=== PATIENT | female | born 1950 | race Caucasian/White ===

== ENCOUNTER 2016-07-21 11:06 | Emergency (ER) | payer MEDICARE, BC ==
[2016-07-21] MEDS ORDERED: HYDROCODONE/APAP 5/325MG TABLET PO ONE (11:57)
--- NOTE | 2016-07-21 12:23 | Emergency Department Record ---
History of Present Illness - General Chief Complaint: Fall Injury Stated Complaint: FALL Time Seen by Provider: 07/21/16 11:39 Source: Patient Mode of Arrival: Wheelchair Limitations: No limitations - History of Present Illness Initial Comments: pt was sitting in a chair in her drs office and when she stood up the chair fell forward with her and she landed on her knees which now hurt. pt denies hitting head or injuring neck. Complaint: Fall Onset/Timin -: Hour(s) Fall From: Chair When Fall Occurred: 1 hour [place] Fall Witnessed: Yes, by bystander Place Fall Occurred: Other Loss of Consciousness: None Prolonged Down Time?: No Symptoms Prior to Fall: None Location - Extremities: Left: Knee, Right: Knee Severity: Moderate Severity scale (1-10): 8 Quality: Other Context: Other Associated Symptoms: Headache - [place] Coma Scale Eye Response: (4) Open spontaneously Motor Response: (6) Obeys commands Verbal Response: (5) Oriented Faina Total: 15 - Related Data Home Medications Medication Instructions Recorded Confirmed Last Taken Alprazolam 0.25 mg PO BID 12/09/13 07/21/16 07/20/16 Omeprazole 40 mg PO DAILY 12/09/13 07/21/16 07/20/16 Venlafaxine HCl [Venlafaxine HCl 150 mg PO BID 12/09/13 07/21/16 07/20/16 ER] Zolpidem Tartrate [Zolpidem 10 mg PO DAILY PRN 12/09/13 07/21/16 07/20/16 Tartrate] Amitriptyline HCl 75 mg PO DAILY 09/08/14 07/21/16 07/20/16 Gabapentin 1,600 mg PO TID tab 12/26/15 07/21/16 07/20/16 Warfarin Sodium 5 mg PO QD #30 tab 06/29/16 07/21/16 07/20/16 Previous Rx's Medication Instructions Recorded Hydrocodone/Acetaminophen [[place] 1 tab PO Q6H PRN #30 tab 11/16/14 5mg/325mg] Hydrocodone/Acetaminophen [[place] 1 tab PO Q6H PRN #7 tab 07/21/16 7.5mg/325mg] Allergies Allergy/AdvReac Type Severity Reaction Status Date / Time Sulfa (Sulfonamide Allergy Severe ANAPHYLAXIS Verified 07/21/16 11:26 Antibiotics) rivaroxaban [From Xarelto] Allergy CHEST PAIN Verified 07/21/16 11:26 codeine AdvReac Intermediate NAUSEA AND Verified 07/21/16 11:26 VOMITING pregabalin [From Lyrica] AdvReac Intermediate BLURRED Verified 07/21/16 11:26 VISION Travel Screening - Travel/Exposure Within Last 30 Days Have you traveled within the last 30 days?: No - Travel/Exposure Within Last Year Have you traveled outside the [place] in the last year?: No - Additonal Travel Details Have you been exposed to anyone with a communicable illness?: No - Travel Symptoms Symptom Screening: None Review of Systems Reviewed: No additional complaints except as noted below Constitutional: Reports: As per HPI. Denies: Chills, Fever, Malaise, Night sweats, Weakness, Weight change Eyes: Reports: As per HPI. Denies: Eye discharge, Eye pain, Photophobia, Vision change ENT: Reports: As per HPI. Denies: Congestion, Dental pain, Ear pain, Epistaxis , Hearing loss, Throat pain Respiratory: Reports: As per HPI. Denies: Cough, Dyspnea, Hemoptysis, Stridor, Wheezes Cardiovascular: Reports: As per HPI. Denies: Arrhythmia, Chest pain, Dyspnea on exertion, Edema, Murmurs, Orthopnea, Palpitations, Paroxysmal nocturnal dyspnea, Rheumatic Fever, Syncope Endocrine: Reports: As per HPI. Denies: Fatigue, Heat or cold intolerance, Polydipsia, Polyuria Gastrointestinal: Reports: As per HPI. Denies: Abdominal pain, Constipation, Diarrhea, Hematemesis, Hematochezia, Melena, Nausea, Vomiting Genitourinary: Reports: As per HPI. Denies: Abnormal menses, Discharge, Dyspareunia, Dysuria, Frequency, Hematuria, Incontinence, Retention, Urgency Musculoskeletal: Reports: As per HPI. Denies: Arthralgia, Back pain, Gout, Joint swelling, Myalgia, Neck pain Skin: Reports: As per HPI. Denies: Bruising, Change in color, Change in hair/ nails, Lesions, Pruritus, Rash Neurological: Reports: As per HPI. Denies: Abnormal gait, Confusion, Headache, Numbness, Paresthesias, Seizure, Tingling, Tremors, Vertigo, Weakness Psychiatric: Reports: As per HPI. Denies: Anxiety, Auditory hallucinations, Depression, Homicidal thoughts, Suicidal thoughts, Visual hallucinations Hematological/Lymphatic: Reports: As per HPI. Denies: Anemia, Blood Clots, Easy bleeding, Easy bruising, Swollen glands Past Medical History - SOCIAL HISTORY Smoking Status: Never smoker Alcohol Use: None Drug Use: None - RESPIRATORY Hx Respiratory Disorders: Yes Hx Bronchitis: Yes - CARDIOVASCULAR Hx Cardio Disorders: No - NEURO Hx Neuro Disorders: Yes Hx TIA: Yes Comment:: Apr 2012 - GI Hx GI Disorders: No - Hx Genitourinary Disorders: No - ENDOCRINE Hx Endocrine Disorders: Yes Hx Thyroid Disease: Yes - MUSCULOSKELETAL Hx Musculoskeletal Disorders: Yes Hx Fibromyalgia: Yes Hx Osteoporosis: Yes - PSYCH Hx Psych Problems: Yes Hx Anxiety: Yes Hx Depression: Yes - HEMATOLOGY/ONCOLOGY Hx Hematology/Oncology Disorders: Yes Hx Anemia: Yes Hx Blood Transfusions: Yes Hx Blood Transfusion Reaction: No Comment:: blood tranfusions last week, FE infusion this week Family Medical History Any Significant Family History?: Yes Hx Alcohol Use: Father, Brother/Sister Hx Anxiety: Mother Hx Cancer: Grandparents Hx Dementia: Mother Hx Depression: Mother Hx Diabetes: Mother Hx Heart Disease: Father Hx HTN: Father Hx Resp Disorders: Mother Hx Stroke: Mother Physical Exam - General General Appearance: Alert, Oriented x3, Cooperative, Mild distress - Head Head exam: Normal inspection - Eye Eye exam: Normal appearance, PERRL, EOMI Pupils: Normal accommodation - ENT ENT exam: Normal exam, Mucous membranes moist, Normal external ear exam, Normal orophraynx Ear exam: Normal external inspection. negative: External canal tenderness Nasal Exam: Normal inspection. negative: Discharge, Sinus tenderness Mouth exam: Normal external inspection, Tongue normal Teeth exam: Normal inspection. negative: Dental caries Throat exam: Normal inspection. negative: Tonsillar erythema, Tonsillar exudate - Neck Neck exam: Normal inspection, Full ROM. negative: Tenderness - Respiratory Respiratory exam: Normal lung sounds bilaterally. negative: Respiratory distress - Cardiovascular Cardiovascular Exam: Regular rate, Normal rhythm, Normal heart sounds - GI/Abdominal GI/Abdominal exam: Soft, Normal bowel sounds. negative: Tenderness - Rectal Rectal exam: Deferred - exam: Deferred - Extremities Extremities exam: Full ROM, Normal capillary refill, Tenderness, Other ( ecchymosis on bilateral knees.) - Back Back exam: Reports: Normal inspection, Full ROM. Denies: Muscle spasm, Rash noted, Tenderness - Neurological Neurological exam: Alert, CN II-XII intact, Normal gait, Oriented X3 - Psychiatric Psychiatric exam: Normal affect, Normal mood - Skin Skin exam: Dry, Intact, Normal color, Warm Course Vital Signs 07/21/16 11:34 Temperature 98.5 F Pulse Rate 79 Respiratory 20 Rate Blood Pressure 126/78 Pulse Ox 94 L Disposition Disposition: Discharge Clinical Impression: Multiple contusions Closed fracture of patella with nonunion Qualifiers: Encounter type: subsequent encounter Fracture morphology: unspecified fracture morphology Fracture alignment: nondisplaced Laterality: left Qualified Code(s): S82.002K - Unspecified fracture of left patella, subsequent encounter for closed fracture with nonunion Disposition: Home, Self-Care Condition: (1) Good Instructions: Fall Prevention for Older Adults (ED), Contusion in Adults, Manager Balance (GEN) Additional Instructions: follow up with family doctor. return sooner if worse. ice and elevate Prescriptions: Hydrocodone/Acetaminophen [[place] 7.5mg/325mg] 1 tab PO Q6H PRN #7 tab PRN Reason: Pain - General Forms: Patient Portal Access
--- NOTE | 2016-07-24 08:34 | RADIOLOGY REPORT ---
EXAM: LEFT KNEE HISTORY: PAIN. TECHNIQUE: Four views of the left knee were performed. FINDINGS: There is severe osteopenia. There is a fracture deformity of the patella. No joint fusion. There is prepatellar soft tissue swelling. There are vascular calcifications. IMPRESSION: 1. SEVERE OSTEOPENIA. 2. FRACTURE DEFORMITY OF THE PATELLA. PREPATELLAR SOFT TISSUE SWELLING. 3. PERIPHERAL VASCULAR DISEASE. JOB NUMBER: [id number] [facility]
--- NOTE | 2016-07-24 08:43 | RADIOLOGY REPORT ---
EXAM: RIGHT KNEE HISTORY: PAIN. TECHNIQUE: Four views of the right knee were performed. FINDINGS: There is osteopenia. There is chondrocalcinosis. There is peripheral vascular disease. No joint effusion. IMPRESSION: 1. OSTEOPENIA. 2. CHONDROCALCINOSIS. 3. PERIPHERAL VASCULAR DISEASE. JOB NUMBER: [id number] [facility]
== END 2016-07-21 13:44 | disposition home or self-care (01) ==
LOC: ER 11:06
DX: S82.002A Unspecified fracture of left patella, initial encounter for closed fracture (principal); S80.01XA Contusion of right knee, initial encounter; R51 Headache; W07.XXXA Fall from chair, initial encounter; Y92.531 Health care provider office as the place of occurrence of the external cause
CPT/HCPCS: 99283

== ENCOUNTER 2017-01-12 06:21 | Day surgery (SDC) | payer MEDICARE, BC ==
[~2017-01-12 06:21] MED LIST: ACETAMINOPHEN 1,000 MG/100 ML BTL IV ONE; CEFAZOLIN 2 Gram 2 GM/50 ML BAG IVPB ONE; FAMOTIDINE 20MG TABLET PO ONE; MECLIZINE 25 MG TABLET PO ONE; METOCLOPRAMIDE 10 MG TABLET PO ONE
[2017-01-12 06:47] LABS: HEMATOCRIT 38.8 % (35.0-47.0)
[2017-01-12 06:57] LABS: INR 2.46; PROTHROMBIN TIME (PATIENT) 26.8 SECONDS (9.5-12.1)
[2017-01-12 07:01] LABS: ANION GAP 10.9 (7-16); BLOOD UREA NITROGEN 20 mg/dL (7-17); CARBON DIOXIDE 19.1 mmol/L (22-30); CREATININE 0.9 mg/dL (0.52-1.04); EST GLOMERULAR FILTRATION RATE > 60 ml/min; GLUCOSE,RANDOM 73 mg/dL (70-110)
[2017-01-12] MEDS ORDERED: TRAMADOL HCL 50 MG TABLET PO PRN (10:47)
[2017-01-12] MEDS ORDERED: ONDANSETRON HCL IV 4 MG/2 ML VIAL IVP PRN (10:47)
[2017-01-12] MEDS ORDERED: ALPRAZOLAM 0.25 MG PO PRN (10:49)
[2017-01-12] MEDS ORDERED: ZOLPIDEM 10 MG PO PRN (10:51)
[2017-01-12] MEDS ORDERED: HYDROCODONE/APAP 5/325MG TABLET PO PRN (10:58)
[2017-01-12] MEDS: RINGERS SOLUTION,LACTATED 1,000 ML IV SCH ×2 (12:09→19:35)
[2017-01-12] MEDS: CEFAZOLIN 1 Gram 1 GM/50 ML BAG IVPB SCH (15:28)
[2017-01-12] MEDS: PATIENT OWN MED: GABAPENTIN 600 MG PO SCH ×2 (15:28→21:47)
[2017-01-12] MEDS ORDERED: ROCURONIUM BROMIDE 50MG/5ML VIAL IV ONE (15:39)
[2017-01-12] MEDS ORDERED: FENTANYL PF 0.25MG/5ML AMPUL IV ONE (15:39)
[2017-01-12] MEDS ORDERED: SEVOFLURANE 250 ML INH ONE (15:39)
[2017-01-12] MEDS ORDERED: LIDOCAINE 2% MDV (20MG/ML) 20ML VIAL IV ONE (15:39)
[2017-01-12] MEDS ORDERED: MIDAZOLAM HCL 2MG/2ML VIAL IV ONE (15:39)
[2017-01-12] MEDS ORDERED: ONDANSETRON HCL IV 4 MG/2 ML VIAL IVP ONE (15:39)
[2017-01-12] MEDS ORDERED: HYDROMORPHONE HCL 2 MG/ML VIAL IV ONE (15:39)
[2017-01-12] MEDS ORDERED: DEXAMETHASONE 4 MG/ML 1ML VIAL IVP ONE (15:39)
[2017-01-12] MEDS ORDERED: PROPOFOL 10 MG/ML VIAL IV ONE (15:39)
[2017-01-12] MEDS ORDERED: KETOROLAC 30 MG/ML VIAL IVP ONE (15:39)
[2017-01-12] MEDS: HYDROCODONE/APAP 5/325MG TABLET PO PRN (19:58)
[2017-01-12] MEDS ORDERED: VENLAFAXINE 150 MG PO SCH (22:00)
[2017-01-12] MEDS ORDERED: AMITRIPTYLINE 75 MG PO SCH (22:00)
[2017-01-13] MEDS: CEFAZOLIN 1 Gram 1 GM/50 ML BAG IVPB SCH ×2 (01:38→07:52)
[2017-01-13] MEDS: RINGERS SOLUTION,LACTATED 1,000 ML IV SCH (02:50)
[2017-01-13] MEDS: HYDROCODONE/APAP 5/325MG TABLET PO PRN (05:26)
[2017-01-13] MEDS ORDERED: PATIENT OWN MED: OMEPRAZOLE 40 MG PO SCH (07:00)
[2017-01-13] MEDS ORDERED: PATIENT OWN MED: LEVOTHYROXINE 75 MCG PO SCH (07:00)
[2017-01-13] MEDS ORDERED: PATIENT OWN MED: LORATADINE 10 MG PO SCH (10:00)
[2017-01-13] MEDS ORDERED: VITAMIN D 50000 UNIT PO SCH (10:00)
[2017-01-13] MEDS ORDERED: WARFARIN 5 MG PO SCH (10:00)
--- NOTE | 2017-01-13 13:10 | Operative Note ---
DATE OF SURGERY: 01/12/2017 PREOPERATIVE DIAGNOSES: 1. Bilateral symptomatic macromastia. 2. Bilateral inframammary intertrigo. 3. Bilateral breast asymmetry. POSTOPERATIVE DIAGNOSES: 1. Bilateral symptomatic macromastia. 2. Bilateral inframammary intertrigo. 3. Bilateral breast asymmetry. OPERATION: Bilateral inferior pedicle breast reduction. Surgeon: Stephon Cool MD Anesthesia: General. Drains: None. Specimens: 2000 total grams of tissue. PROCEDURE: The patient was interviewed preoperatively. The operative plan was reviewed. She was marked appropriately for almaguer pattern inferior pedicle breast reduction. She requested to be as small as possible. She was then taken to the operating room with PAS stockings after induction of uncomplicated general anesthesia. All pressure points well padded and protected, we prepped and draped in the usual sterile manner. We circumscribed her nipple areolar complex 4.5 cm and de-epithelialized 8 cm base pedicles with cautery for hemostasis because she was on Coumadin. We then went to medial resection, we went perpendicular to the pedicle tube, but not through pec fascia and laterally well into the axilla, leaving a layer of subcutaneous to avoid permanent neurosensory changes. We then raised skin flaps with a uniform thickness. We then took the remaining bulk off the pedicles. It should be noted this was all done with cautery, paying particular attention to hemostasis because of her anticoagulation. We then checked the flaps and pedicles for symmetry, hemostasis, and the nipples for vascularity. Once this was satisfactory, we closed by advancing lateral to medial and then sewn up, checking for shape and contour and symmetry. Once this was satisfactory, we placed her supine and closed in horizontal vertical using interrupted and subcuticular 2-0 Monocryl. We then marked new nipple areolar complex positions, measured them from the sternal notch nipple from midline to nipple and inframammary crease to nipple. Once these three numbers were the same, we excised the defects again with cautery. The nipples as expected were directly beneath. We then secured them meticulously using interrupted and subcuticular 4-0 Monocryl. At no time did either vascular pedicle show any vascular compromise prior to dressing change. We had meticulous hemostasis. She tolerated the procedure well without complication. MD NERI Fournier
[2017-01-14] MEDS ORDERED: WARFARIN 4 MG PO SCH (10:00)
== END 2017-01-13 10:50 | disposition home or self-care (01) ==
LOC: SUR 06:21 → MEDSURG 11:04 → SUR 01-13 10:50
PROVIDERS: ATTEND Plastic Surgery
DX: N62 Hypertrophy of breast (principal); L30.4 Erythema intertrigo; M54.89 Other dorsalgia; E03.9 Hypothyroidism, unspecified; M79.7 Fibromyalgia; Z86.73 Personal history of transient ischemic attack (TIA), and cerebral infarction without residual deficits; M54.2 Cervicalgia; N64.81 Ptosis of breast
CPT/HCPCS: 85018; 85014; 85610; 80048; 19318; 00402; J1885; J2405; J0690 ×3; J1170

== ENCOUNTER 2017-03-11 10:37 | Inpatient (IN) | payer MEDICARE, BC ==
[2017-03-11] MEDS ORDERED: MORPHINE SULFATE 5 MG/ML PFS IVP ONE ×2 (10:42→13:22)
--- NOTE | 2017-03-11 10:47 | Emergency Department Record ---
History of Present Illness - General Chief Complaint: Fall Injury Stated Complaint: FALL Time Seen by Provider: 03/11/17 10:39 Source: Patient, Family Mode of Arrival: Ambulatory Limitations: No limitations - History of Present Illness Initial Comments: 66 yo female presents after a fall at the [facility]. She was walking in to the store and tripped over the ledge as she approached. She landed on her right shoulder. She is unsure if she hit her head. She has no pain or visible injury. She is on coumadin. She denies neck pain. She has right knee pain. N weakness or numbness. PCP is the [facility]. Complaint: Fall -: Minutes(s) Fall From: Standing When Fall Occurred: Just prior to arrival Fall Witnessed: Yes, by family Place Fall Occurred: Other (store) Loss of Consciousness: None Prolonged Down Time?: No Symptoms Prior to Fall: None Location: Other (right shoulder) Location - Extremities: Right: Shoulder, Elbow, Knee Severity: Severe Quality: Aching Associated Symptoms: Denies - [place] Coma Scale Eye Response: (4) Open spontaneously Motor Response: (6) Obeys commands Verbal Response: (5) Oriented Faina Total: 15 - Related Data Home Medications Medication Instructions Recorded Confirmed Last Taken Calcium Carbonate [Calcium] 600 mg PO BID 03/11/17 03/11/17 Unknown Docusate Sodium [Stool Softener] 100 mg PO ASDIR 03/11/17 03/11/17 Unknown Ergocalciferol (Vitamin D2) 50,000 unit PO WEEKLY 03/11/17 03/11/17 Unknown [Vitamin D2] Gabapentin [Neurontin] 600 mg PO TID 03/11/17 03/11/17 Unknown Levocetirizine Dihydrochloride 5 mg PO DAILY 03/11/17 03/11/17 Unknown [Xyzal] Previous Rx's Medication Instructions Recorded Hydrocodone/Acetaminophen [[place] 1 tab PO Q6H PRN #7 tab 07/21/16 7.5mg/325mg] Allergies Allergy/AdvReac Type Severity Reaction Status Date / Time Sulfa (Sulfonamide Allergy Severe ANAPHYLAXIS Verified 03/11/17 11:43 Antibiotics) rivaroxaban [From Xarelto] Allergy Intermediate RASH Verified 03/11/17 11:43 codeine AdvReac Intermediate NAUSEA AND Verified 03/11/17 11:43 VOMITING pregabalin [From Lyrica] AdvReac Intermediate BLURRED Verified 03/11/17 11:43 VISION Review of Systems Constitutional: Denies: Chills, Fever, Malaise, Weakness Eyes: Denies: Eye discharge ENT: Denies: Congestion, Throat pain Respiratory: Denies: Cough, Dyspnea, Hemoptysis, Stridor, Wheezes Cardiovascular: Denies: Chest pain, Palpitations, Syncope Endocrine: Denies: Fatigue Gastrointestinal: Denies: Abdominal pain, Diarrhea, Nausea, Vomiting Genitourinary: Denies: Dysuria, Urgency Musculoskeletal: Reports: As per HPI, Arthralgia Skin: Denies: Bruising, Change in color, Rash Neurological: Denies: Confusion, Headache, Numbness, Tingling, Weakness Psychiatric: Denies: Anxiety Hematological/Lymphatic: Denies: Blood Clots, Easy bleeding, Easy bruising, Swollen glands Past Medical History - SOCIAL HISTORY Smoking Status: Never smoker - RESPIRATORY Hx Respiratory Disorders: Yes Hx Bronchitis: Yes (none recently) Hx Pneumonia: Yes (6 yrs ago) - CARDIOVASCULAR Hx Cardio Disorders: Yes Hx Deep Vein Thrombosis: Yes (right leg 2002) Hx Irregular Heartbeat: Yes (A-fib) Hx Vascular Disease: Yes (peripheral vascular disease) - NEURO Hx Neuro Disorders: Yes Hx Headaches: Yes Hx of Migraines: Yes Hx TIA: Yes (2010) - GI Hx GI Disorders: Yes Hx Reflux: Yes (on omeprazole) Hx Irritable Bowel: Yes Hx Wt Loss/Wt Gain: (.) - Hx Genitourinary Disorders: No Comment:: hyst - ENDOCRINE Hx Endocrine Disorders: Yes Hx Thyroid Disease: Yes (hypo active) - MUSCULOSKELETAL Hx Musculoskeletal Disorders: Yes Hx Arthritis: Yes (all over) Hx Fibromyalgia: Yes Hx Osteoporosis: Yes - PSYCH Hx Psych Problems: Yes Hx Anxiety: Yes Hx Depression: Yes - HEMATOLOGY/ONCOLOGY Hx Hematology/Oncology Disorders: Yes Hx Anemia: Yes Hx Bruising: Yes (on warfarin) Hx Blood Transfusions: Yes Hx Blood Transfusion Reaction: No Comment:: has yearly iron infusions-done August 2016 Family Medical History Hx Alcohol Use: Father, Brother/Sister Hx Anxiety: Mother Hx Cancer: Grandparents Hx Dementia: Mother Hx Depression: Mother Hx Diabetes: Mother Hx Heart Disease: Father Hx HTN: Father Hx Resp Disorders: Mother Hx Stroke: Mother Physical Exam - General General Appearance: Alert, Oriented x3, Cooperative, No acute distress Limitations: No limitations - Head Head exam: Atraumatic, Normocephalic, Normal inspection Head exam detail: negative: Abrasion, Contusion, General tenderness, Hematoma, Laceration - Eye Eye exam: Normal appearance. negative: PERRL, Conjunctival injection, Periorbital swelling, Periorbital tenderness - ENT ENT exam: Normal exam, Mucous membranes moist Ear exam: Normal external inspection Nasal Exam: Normal inspection Mouth exam: Normal external inspection - Neck Neck exam: Normal inspection, Full ROM. negative: Tenderness - Respiratory Respiratory exam: Normal lung sounds bilaterally. negative: Chest wall tenderness, Respiratory distress, Rhonchi, Stridor, Wheezes - Cardiovascular Cardiovascular Exam: Regular rate, Normal rhythm, Normal heart sounds Peripheral Pulses: 2+: Radial (R), Radial (L) - GI/Abdominal GI/Abdominal exam: Soft. negative: Tenderness - Rectal Rectal exam: Deferred - exam: Deferred - Extremities Extremities exam: Joint swelling, Normal capillary refill, Tenderness. negative : Full ROM Image of Full Body: 1 - tender anterior shoulder - Back Back exam: Reports: Normal inspection, Full ROM. Denies: CVA tenderness (R), CVA tenderness (L), Tenderness - Neurological Neurological exam: Alert, Oriented X3. negative: Motor sensory deficit ( sensation is intact to the RUE to the finger tips, moves fingers and wrist without difficulty) - Psychiatric Psychiatric exam: Normal affect, Normal mood - Skin Skin exam: Dry, Intact, Normal color, Warm Course - Reevaluation(s) Reevaluation #1: Labs reviewed Mild chronic unchanged anemia HCT no acute process Right shoulder reviewed. Mildly displaced fracture noted. 03/11/17 11:38 Reevaluation #2: INR 2.8 Right shoulder with greater tuberosity fracture and possible impacted humeral neck fracture Elbow is negative for acute fracture Knee no acute fracture, small effusion. 03/11/17 11:52 Reevaluation #3: the patient's pain is not well controlled I will speak with her PCP for possible admission for pain control, ortho consult , PT consult. 03/11/17 11:56 I placed a consult for orthopedics I ALEJANDRA Kessler V for admission for pain control, consultations, PT. 03/11/17 12:01 Dr Rodriguez notified of the admission/consultation 03/11/17 13:29 Medical Decision Making - Lab Data Result diagrams: 03/11/17 11:00 03/11/17 11:00 Disposition Disposition: Admit Clinical Impression: Humerus fracture Qualifiers: Encounter type: initial encounter Humerus Location: proximal Fracture type: closed Fracture morphology: unspecified fracture morphology Laterality: right Qualified Code(s): S42.201A - Unspecified fracture of upper end of right humerus , initial encounter for closed fracture Contusion, knee Qualifiers: Encounter type: initial encounter Laterality: right Qualified Code(s): S80.01XA - Contusion of right knee, initial encounter Disposition: Still a Patient at [facility] Decision to Admit: Admit from ER Decision to Admit Date: 03/11/17 Decision to Admit Time: 12:01 Condition: (2) Stable Time of Disposition: 12:01 Quality - Quality Measures Quality Measures: N/A - Blood Pressure Screening Does Patient Have Any of the Following: No Blood Pressure Classification: Normal BP Reading Systolic Measurement: 114 Diastolic Measurement: 73 Screening for High Blood Pressure: < Normal BP, F/U Not Required > [G8783]
[2017-03-11 11:31] LABS: BASO % 0.2 % (0-6); EOS % 7.1 % (0-6); GRAN % 67.2 % (47-80); HEMATOCRIT 37.4 % (35.0-47.0); HEMOGLOBIN 11.4 gm/dl (11.6-16.0); LYMPH % 18.6 % (16-45); MEAN CELL VOLUME 102.5 fl (81-97); MEAN CORPUSCULAR HEMOGLOBIN 31.2 pg (27-33); MEAN CORPUSCULAR HGB CONC 30.5 g/dl (32-36); MEAN PLATELET VOLUME 11.5 fl (7.4-10.4); MONO % 6.9 % (0-9); PLATELET COUNT 307 K/uL (130-400); RED BLOOD COUNT 3.65 M/uL (3.80-5.40); RED CELL DISTRIBUTION WIDTH 13.9 % (11.5-14.5); WHITE BLOOD COUNT W/O DIFF 12.1 K/uL (4.2-12.2)
[2017-03-11 11:41] LABS: INR 2.81; PARTIAL THROMBOPLASTIN TIME 35.9 SECONDS (24.5-39.1); PROTHROMBIN TIME (PATIENT) 30.7 SECONDS (9.5-12.1)
[2017-03-11 11:43] LABS: BLOOD UREA NITROGEN 33.7 mg/dL (17.4-49.2); CREATININE 0.6 mg/dL (0.5-0.9); EST GLOMERULAR FILTRATION RATE > 60 mL/min; GLUCOSE,RANDOM 85 mg/dL (74-109)
--- NOTE | 2017-03-11 14:10 | CT SCAN REPORT ---
EXAM: CT OF THE HEAD WITHOUT CONTRAST HISTORY: FELL APPROXIMATELY ONE HOUR AGO. COUMADIN THERAPY. TECHNIQUE: Routine noncontrast CT examination of the head was obtained. Comparison: CT of the head without contrast dated 03/05/16. FINDINGS: The ventricles and subarachnoid spaces remain normal in size for age with minor age related atrophy present. No new area of abnormally increased or decreased attenuation is noted throughout the brain substance. No new abnormal extraaxial fluid collection or acute skull fracture. Post surgical change within the anterior frontal bone. Chronic inflammatory changes scattered throughout the frontal sinuses, bilateral ethmoid air cells and left maxillary sinus. IMPRESSION: 1. NO CT EVIDENCE OF ACUTE MAJOR VESSEL INFARCT, INTRACRANIAL HEMORRHAGE, MASS NOR SKULL FRACTURE. 2. POST SURGICAL CHANGES REDEMONSTRATED IN THE ANTERIOR FRONTAL BONE. 3. CHRONIC INFLAMMATORY CHANGES IN MULTIPLE PARANASAL SINUSES. JOB NUMBER: [id number] [facility]
--- NOTE | 2017-03-11 14:17 | RADIOLOGY REPORT ---
EXAM: RIGHT ELBOW HISTORY: PAIN POST FALL. TECHNIQUE: AP and lateral views of the right elbow were obtained. Comparison: None. Encounter: Initial. FINDINGS: There is mild diffuse osteopenia. No convincing acute fracture, dislocation, or destructive bone lesion is seen. There are mild degenerative changes of each compartment. No definite posterior fat pad sign is seen. No focal soft tissue swelling. IMPRESSION: OSTEOPENIA. NO DEFINITE FRACTURE NOR DISLOCATION. MILD DEGENERATIVE CHANGES. JOB NUMBER: [id number] [facility]
--- NOTE | 2017-03-11 14:21 | RADIOLOGY REPORT ---
EXAM: RIGHT SHOULDER HISTORY: RIGHT SHOULDER PAIN RADIATING INTO ELBOW POST FALL. TECHNIQUE: AP and scapular Y-views of the right shoulder were obtained. Comparison: Two view chest radiographic examination dated 11/19/15. Encounter: Initial. FINDINGS: The examination is limited by suboptimal patient positioning. There is diffuse osteopenia. There is a mildly displaced greater tuberosity fracture suggested. A nondisplaced humeral neck fracture cannot be excluded on this examination. No other fracture is seen nor is there dislocation. There are mild degenerative changes of the acromioclavicular and glenohumeral joints. An intraspinal stimulator is in place at the lower thoracic levels. IMPRESSION: 1. MILDLY DISPLACED GREATER TUBEROSITY FRACTURE. A NONDISPLACED HUMERAL NECK FRACTURE IS ALSO POSSIBLE. 2. MILD DEGENERATIVE CHANGES. JOB [facility]BER: [id number] [facility]
--- NOTE | 2017-03-11 14:24 | RADIOLOGY REPORT ---
EXAM: RIGHT KNEE HISTORY: KNEE PAIN POST FALL. TECHNIQUE: AP and lateral views of the right knee were obtained. Comparison: Four views of the right knee dated 07/21/16. Encounter: Initial. FINDINGS: There is diffuse osteopenia. No definite acute fracture, dislocation , or destructive bone lesion is seen. Tricompartmental degenerative changes are present, moderate in degree. Chondrocalcinosis of the medial and lateral menisci redemonstrated. There is a new suprapatellar joint effusion. There is diffuse arterial sclerosis. IMPRESSION: 1. OSTEOPENIA LIMITS EVALUATION. NO DEFINITE ACUTE FRACTURE NOR DISLOCATION. MODERATE TRICOMPARTMENTAL DEGENERATIVE CHANGES. 2. NEW SMALL JOINT EFFUSION. 3. DIFFUSE ARTERIAL CALCIFICATION. JOB NUMBER: [id number] [facility]
[2017-03-11] MEDS ORDERED: WARFARIN SODIUM 4 MG PO SCH (14:50)
[2017-03-11] MEDS ORDERED: ACETAMINOPHEN 500 MG TABLET PO PRN (14:50)
[2017-03-11] MEDS ORDERED: MORPHINE SULFATE 5 MG/ML PFS IVP PRN (14:50)
[2017-03-11] MEDS ORDERED: LORATADINE 10 MG TABLET PO SCH (14:50)
[2017-03-11] MEDS ORDERED: Non-Formulary MISC (Zolpidem Tartrate [Zolpidem Tartrate] 10 MG) PO PRN (14:50)
[2017-03-11] MEDS ORDERED: OXYCODONE/APAP 7.5MG/325MG TABLET PO PRN (15:14)
--- NOTE | 2017-03-11 15:27 | History & Physical ---
History of Present Illness - Date of Service Date of Service for History & Physical: 03/11/17 - History of Present Illness Admitting Diagnosis: Humerus Fracture, knee contusion History of Present Illness: 66 y/o female s/p fall with right shoulder pain admitted for right minimally displaced distal humerus fracture. Past medical history includes pneumonia, DVT 2002, a-fib, PVD, TIA 2010 and 2011, migraines, GERD, IBS, hypothyroidism, osteoarthritis, fibromyalgia, OP, anemia, chronic warfarin use. PAST SURGICAL HISTORY Past Surgical History hysterectomy; gall bladder; bowel bypass with gastric bypass 44yrs ago; shoulder repair-clavicle fx(left); x2; wrist sx-right (bone spur removed); ankle sx-ligament repair right; sinus reconstruction x4; EGDs; abdominal scar tissue revision; colonoscopies. Prior to arrival was at [employer], tripped on curb and landed on right shoulder approximately 1030 in the am. Denies hitting head, no associated dizziness or LOC. Arrived in ED a few hours later for persistent right shoulder pain. Does report has had intermittent episodes of vertigo for years, episodes occur several times per week. Has never been worked up for this. No associated CP, diaphoresis, LOC with these episodes. Will lose her balance, will have to grab onto nearby items. Rarely falls with these. 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 While in the ED was found to have a right minimally displaced distal humerus fracture. Arm was put in a sling and orthopedics consulted. CT head negative for acute process. Pain difficult to control in the ED. Morphine given x 2 with subsequent episodes of hypotension. Admitted for pain control, carotid dopplers for recurrent dizziness and imbalance, and orthopedic consult. 03/11/17- resting in bed, right shoulder very painful. CMS intact to right distal extremity. BP improved after arriving to the floor. Orthopedics had already consulted, planning for outpatient follow up in [address] [facility] PCP: Stefanie Reeder Noc Engineer: Dr López Travel Screening - Travel/Exposure Within Last 30 Days Have you traveled within the last 30 days?: No - Travel/Exposure Within Last Year Have you traveled outside the [place] in the last year?: No - Additonal Travel Details Have you been exposed to anyone with a communicable illness?: No - Travel Symptoms Symptom Screening: None Review of Systems Constitutional: Denies: Chills, Fever, Malaise, Weakness Eyes: Denies: Eye discharge ENT: Denies: Congestion, Throat pain Respiratory: Denies: Cough, Dyspnea, Hemoptysis, Stridor, Wheezes Cardiovascular: Denies: Chest pain, Palpitations, Syncope Endocrine: Denies: Fatigue Gastrointestinal: Denies: Abdominal pain, Diarrhea, Nausea, Vomiting Genitourinary: Denies: Dysuria, Urgency Musculoskeletal: Reports: As per HPI, Arthralgia Skin: Denies: Bruising, Change in color, Rash Neurological: Denies: Confusion, Headache, Numbness, Tingling, Weakness Psychiatric: Denies: Anxiety Hematological/Lymphatic: Denies: Blood Clots, Easy bleeding, Easy bruising, Swollen glands Past Medical History - SOCIAL HISTORY Smoking Status: Never smoker - RESPIRATORY Hx Respiratory Disorders: Yes Hx Bronchitis: Yes (none recently) Hx Pneumonia: Yes (6 yrs ago) - CARDIOVASCULAR Hx Cardio Disorders: Yes Hx Deep Vein Thrombosis: Yes (right leg 2002) Hx Irregular Heartbeat: Yes (A-fib) Hx Vascular Disease: Yes (peripheral vascular disease) - NEURO Hx Neuro Disorders: Yes Hx Headaches: Yes Hx of Migraines: Yes Hx TIA: Yes (2010) - GI Hx GI Disorders: Yes Hx Reflux: Yes (on omeprazole) Hx Irritable Bowel: Yes Hx Wt Loss/Wt Gain: (.) - Hx Genitourinary Disorders: No Comment:: hysterectomy - ENDOCRINE Hx Endocrine Disorders: Yes Hx Thyroid Disease: Yes (hypo active) - MUSCULOSKELETAL Hx Musculoskeletal Disorders: Yes Hx Arthritis: Yes (all over) Hx Fibromyalgia: Yes Hx Osteoporosis: Yes - PSYCH Hx Psych Problems: Yes Hx Anxiety: Yes Hx Depression: Yes - HEMATOLOGY/ONCOLOGY Hx Hematology/Oncology Disorders: Yes Hx Anemia: Yes Hx Bruising: Yes (on warfarin) Hx Blood Transfusions: Yes Hx Blood Transfusion Reaction: No Comment:: has yearly iron infusions-done August 2016 Family Medical History Any Significant Family History?: Yes Hx Alcohol Use: Father, Brother/Sister Hx Anxiety: Mother Hx Cancer: Grandparents Hx Dementia: Mother Hx Depression: Mother Hx Diabetes: Mother Hx Heart Disease: Father Hx HTN: Father Hx Resp Disorders: Mother Hx Stroke: Mother H&P Meds/Allergies - Allergies Allergies: Allergies Allergy/AdvReac Type Severity Reaction Status Date / Time Sulfa (Sulfonamide Allergy Severe ANAPHYLAXIS Verified 03/11/17 14:58 Antibiotics) rivaroxaban [From Xarelto] Allergy Intermediate RASH Verified 03/11/17 14:58 codeine AdvReac Intermediate NAUSEA AND Verified 03/11/17 14:58 VOMITING pregabalin [From Lyrica] AdvReac Intermediate BLURRED Verified 03/11/17 14:58 VISION - Home Medications Home Medications Medication Instructions Recorded Confirmed Last Taken Calcium Carbonate [Calcium] 600 mg PO BID 03/11/17 03/11/17 Unknown Docusate Sodium [Stool Softener] 100 mg PO DAILY 03/11/17 03/11/17 Unknown Ergocalciferol (Vitamin D2) 50,000 unit PO ASDIR 03/11/17 03/11/17 Unknown [Vitamin D2] Gabapentin [Neurontin] 600 mg PO TID 03/11/17 03/11/17 Unknown Warfarin Sodium [Coumadin] 5 mg PO MOWEFR 03/11/17 03/11/17 Unknown Previous Rx's Medication Instructions Recorded Hydrocodone/Acetaminophen [[place] 1 tab PO Q6H PRN #7 tab 07/21/16 7.5mg/325mg] - Active Medications Active Medications: Current Medications Acetaminophen (Tylenol 500mg Tab) 1,000 mg PO Q6H PRN PRN Reason: PAIN/TEMP Alprazolam (Xanax) 0.25 mg PO BID [facility] Levothyroxine Sodium (Synthroid) 75 mcg PO DAILY [facility] Loratadine (Claritin) 10 mg PO QD [facility] Last Admin: 03/11/17 15:03 Dose: Not Given Morphine Sulfate (Morphine Sulfate) 5 mg IVP Q4H PRN PRN Reason: Pain - General Stop: 03/18/17 14:51 Non-Formulary Medication (Amitriptyline Hcl [Amitriptyline Hcl]) 75 mg PO DAILY [facility] Non-Formulary Medication (Gabapentin [Gabapentin]) 1,600 mg PO TID [facility] Non-Formulary Medication (Omeprazole [Omeprazole]) 40 mg PO DAILY [facility] Non-Formulary Medication (Venlafaxine Hcl [Venlafaxine Hcl Er]) 150 mg PO BID [facility] Non-Formulary Medication (Warfarin Sodium [Warfarin Sodium]) 4 mg PO QD [facility] Last Admin: 03/11/17 15:03 Dose: Not Given Non-Formulary Medication (Zolpidem Tartrate [Zolpidem Tartrate]) 10 mg PO DAILY PRN PRN Reason: INSOMNIA Oxycodone/Acetaminophen (Percocet 7.5-325 Mg Tablet) 1 each PO Q6H PRN PRN Reason: Pain - Moderate (5-7) Stop: 03/18/17 15:15 Physical Exam - Vital Signs Vital Signs: Vital Signs - Last 24 Hrs Pulse Resp BP Pulse Ox 03/11/17 14:41 78 16 103/70 99 - General General Appearance: Alert, Oriented x3, Cooperative, Moderate distress Limitations: No limitations - Head Head exam: Atraumatic, Normocephalic, Normal inspection Head exam detail: negative: Abrasion, Contusion, General tenderness, Hematoma, Laceration - Eye Eye exam: Normal appearance. negative: PERRL, Conjunctival injection, Periorbital swelling, Periorbital tenderness - ENT ENT exam: Normal exam, Mucous membranes moist Ear exam: Normal external inspection Nasal Exam: Normal inspection Mouth exam: Normal external inspection - Neck Neck exam: Normal inspection, Full ROM. negative: Tenderness - Respiratory Respiratory exam: Normal lung sounds bilaterally. negative: Chest wall tenderness, Respiratory distress, Rhonchi, Stridor, Wheezes - Cardiovascular Cardiovascular Exam: Regular rate, Normal rhythm, Normal heart sounds Peripheral Pulses: 2+: Radial (R), Radial (L), Dorsalis Pedis (R), Dorsalis Pedis (L) - GI/Abdominal GI/Abdominal exam: Soft. negative: Tenderness - Rectal Rectal exam: Deferred - exam: Deferred - Extremities Extremities exam: Joint swelling, Normal capillary refill. negative: Calf tenderness, Full ROM, Pedal edema - Back Back exam: Reports: Normal inspection, Full ROM. Denies: CVA tenderness (R), CVA tenderness (L), Tenderness - Neurological Neurological exam: Alert, Oriented X3. negative: Motor sensory deficit ( sensation is intact to the RUE to the finger tips, moves fingers and wrist without difficulty) - Psychiatric Psychiatric exam: Normal affect, Normal mood - Skin Skin exam: Dry, Intact, Normal color, Warm Results - Labs Result Diagrams: 03/11/17 11:00 03/11/17 11:00 VTE H&P Assessment - Risk for VTE Risk for VTE: Yes Risk Level: Low Risk Assessment Date: 03/12/17 Risk Assessment Time: 09:05 VTE Orders Placed or Will Be Placed: Yes Plan - Inpatient Certification Inpatient Certification: Admit to inpatient care: Based on my medical assessment, after consideration of patient's risk factors (age, co-morbidities and patient presenting symptoms and acuity), I expect that this patient will remain in the hospital greater than or equal to two midnights and that the services needed warrant inpatient care because: Patient Risk Factors: [] Estimated length of stay: [] The patient may reasonably be expected to be discharged or transferred to a hospital within 96 hours after admission to [facility]. Services needed: [] Post hospital care (if known): [] I certify that my determination is in accordance with my understanding of Medicare requirements for reasonable and necessary inpatient services. - Detailed Diagnosis and Plan (1) Humerus fracture Current Visit: Yes Status: Acute Qualifiers: Encounter type: initial encounter Humerus Location: proximal Fracture type: closed Fracture morphology: unspecified fracture morphology Laterality : right Qualified Code(s): S42.201A - Unspecified fracture of upper end of right humerus, initial encounter for closed fracture Base Code: S42.309A - UNSP FRACTURE OF SHAFT OF HUMERUS, UNSP ARM, INIT Comment: 03/11/17- - consult Dr Jennifer vanegas, will follow up with him as outpatient in 2 weeks - PT/OT - right arm sling - NWB RUE - pain control with morphine sulfate and percocet ( nursing advised to use Percocet first as monitor BP prior to using MS if absolutely necessary as causes hypotension) (2) Contusion, knee Current Visit: Yes Status: Acute Qualifiers: Encounter type: initial encounter Laterality: right Qualified Code(s): S80.01XA - Contusion of right knee, initial encounter Base Code: S80.00XA - CONTUSION OF UNSPECIFIED KNEE, INITIAL ENCOUNTER Comment : 03/11/17- stable (3) Full code status Current Visit: Yes Status: Acute Base Code: Z78.9 - OTHER SPECIFIED HEALTH STATUS Comment: 03/11/17- will remain full code during this hospitalization (4) DVT prophylaxis Current Visit: Yes Status: Acute Base Code: [id number] - Comment: 03/11/17- on long-term coumadin therapy - INR daily - PharmD to follow
[2017-03-11] MEDS ORDERED: GABAPENTIN 1600 MG PO SCH (16:00)
[2017-03-11] MEDS: OXYCODONE HCL/APAP 5MG/325MG TABLET PO PRN (16:15)
[2017-03-11] MEDS: GABAPENTIN 300 MG CAPSULE PO SCH ×2 (17:13→21:41)
--- NOTE | 2017-03-11 18:50 | Rehab Evaluation ---
Patient Information - Patient Information Diagnosis: R humerus fx, R knee contusion s/p fall Ordered Treatment: PT Evaluate and Treat Status: Initial Evaluation Surgery: No History: Detail (Pt was walking into [employer] store this morning when she fell, landing on R shoulder and knee. She does not recall tripping, slipping or otherwise being unsteady. She denies fainting or experiencing any loss of consciousness.) Past Medical/Surgical Hx: PAST MEDICAL/SURGICAL HISTORY Past Surgical History hysterectomy; gall bladder; bowel bypass with gastric bypass 44yrs ago; shoulder repair-clavicle fx(left); x2; wrist sx-right (bone spur removed); ankle sx-ligament repair right; sinus reconstruction x4; EGDs; abdominal scar tissue revision; colonoscopies. PMH - Respiratory Hx Respiratory Disorders Yes Hx Bronchitis Yes: none recently Hx Pneumonia Yes: 6 yrs ago PMH - Cardiovascular Hx Cardiovascular Disorders Yes Hx Deep Vein Thrombosis Yes: right leg 2002 Hx Irregular Heartbeat Yes: A-fib Hx Vascular Disease Yes: peripheral vascular disease Hx Transient Ischemic Attacks Yes: 2010 (TIA) Hx of Migraines Yes PMH - Neuro Hx Neurological Disorders Yes Hx Headaches Yes Hx Transient Ischemic Attacks Yes: 2010 (TIA) PMH - GI Hx Gastrointestinal Disorders Yes Hx Gastroesophageal Reflux Yes: on omeprazole Hx Irritable Bowel Yes Hx Weight Loss/Weight Gain . PMH - Hx Genitourinary Disorders No Comment: hysterectomy PMH - Endocrine Hx Endocrine Disorders Yes Hx Thyroid Disease Yes: hypo active PMH - Musculoskeletal Hx Musculoskeletal Disorders Yes Hx Arthritis Yes: all over Hx Fibromyalgia Yes Hx Osteoporosis Yes PMH - Psych Hx Psychiatric Problems Yes Hx Anxiety Yes Hx Depression Yes PMH - Hematology/Oncology Hx Hematology/Oncology Yes Disorders Hx Anemia Yes Hx Bruising Yes: on warfarin Hx Blood Transfusion Reaction No Comment: has yearly iron infusions-done August 2016 Premorbid Status: Detail (Pt was ambulating independently over community distances/surfaces, sometimes using a single tip cane. She states she feels unsteady walking on uneven surfaces. She was independent with all activities of daily living, including self-care, household tasks, driving and taking care of grandchildren.) Social History: Detail (Pt lives in a 2-story home with her daughter and four grandchildren, but she lives entirely on the first floor and has everything she needs (bathroom, laundry) on first floor. She has a tub/shower combo, grab bars , and elevated toilet. She states she has not fallen in the last six months except for today.) Precautions: [place], Fall - Time With Patient Total Time Spent With Patient (Min): 30 Treatment Procedures: Detail (PT Evaluation) Subjective Information - Subjective Information Per Patient (Pt is reclined in bed, w/sling on R UE. She reports significant pain in her R shoulder and soreness in her R knee.) Objective Data - Pain Pain Present: Yes Pain Intensity: 8 (R shoulder) Pain Scale Used: Numeric (1 - 10) - Mental Status Patient Orientation: Oriented x3 - Visual Perception Appears within normal limits for therapeutic activities - ROM Within normal limits, Not within normal limits (AROM in B LE's is WNL at hips, knees, and ankles; AROM is functional in L shoulder, WNL in L elbow, wrist. R UE was not assessed at this time.) - Strength/Tone Not within normal limits (Grossly good strength in major muscle groups of B LE' s and L UE. R UE not assessed. Pt guarded with R hand movement.) - Coordination Appears within normal limits for therapeutic activities (Except as limited by pain and ROM/strength impairment in R UE.) - Bed Mobility Needs Assist (Minimal assistance for scooting to edge of bed, to get into bed. She declined scooting to middle of bed due to pain.) - Transfers Needs Assist (CGA for sit/stand transfer w/o assistive device.) - Balance Balance Sitting: Good Balance Standing: Fair (Will assess standing balance further at next visit.) - Sensation Intact (Sensation is intact to light touch throughout L UE and distal R UE, B LEs.) - Gait Detail (Pt ambulated from bed to bathroom and back w/CGA, w/o assistive device.) Therapy Assessment - Therapy Assessment Detail (Pt exhibits ROM and mobility impairments in R UE consistent w/her injury. Ortho consult is scheduled for 03/19/17. She is a good candidate for inpatient physical therapy to ensure safety w/mobility while R UE is immobilized.) Patient Education - Patient Education Barriers To Learning: None Problem List - Problem List Physical Therapy Problem List: Detail (1. Requires assist for bed mobility and positioning. 2. Requires contact guard assist for transfers and gait. 3. History of unsteadiness on uneven surfaces.) Goals - Goals Physical Therapy Goals: 1. Pt will be independent w/bed mobility and transfers. 2. Pt will safely and independently ambulate over household distances/ surfaces w/ or w/o single tip cane. 3. Pt will complete [place] Balance test to identify balance difficulties. 4. Pt will be independent w/ a basic home exercise program. Prognosis - Prognosis Good Plan - Plan Physical Therapy Plan: Pt will be seen 1-2x/daily M-F to facilitate safety w/ mobility, balance training, instruction in home exercise program.
[2017-03-11] MEDS: VENLAFAXINE ER 75 MG CAPSULE PO SCH (21:41)
[2017-03-11] MEDS: AMITRIPTYLINE 25 MG TABLET PO SCH (21:42)
[2017-03-11] MEDS: ZOLPIDEM TARTRATE 5 MG TABLET PO SCH (21:42)
[2017-03-11] MEDS: ALPRAZOLAM 0.25 MG TABLET PO SCH (21:42)
[2017-03-12] MEDS: OXYCODONE HCL/APAP 5MG/325MG TABLET PO PRN (01:48)
[2017-03-12] MEDS: LEVOTHYROXINE SODIUM 75 MCG TABLET PO SCH (06:27)
[2017-03-12] MEDS: PANTOPRAZOLE SODIUM 40 MG TABLET PO SCH (06:27)
[2017-03-12 07:07] LABS: INR 2.62; PROTHROMBIN TIME (PATIENT) 28.6 SECONDS (9.5-12.1)
[2017-03-12] MEDS ORDERED: OXYCODONE/APAP 7.5MG/325MG TABLET PO PRN (09:17)
[2017-03-12] MEDS ORDERED: OXYCODONE/APAP 10MG-325MG TABLET PO ONE (09:18)
--- NOTE | 2017-03-12 09:27 | Physician Progress Note ---
Subjective - Date Date of Physician Progress Note: 03/12/17 - Subjective Subjective Comment: Reports pain is severe to right shoulder with generalized stiffness and soreness from fall. Current percocet dosing no helping pain. She is currently complaining fo 04/06. VSS have remain stable. No concern with B/B function, no complaint of constipation Objective - Vital Signs Vital Signs: Vital Signs - Last 24 Hrs Temp Pulse Pulse Resp BP Pulse Ox 03/12/17 08:00 80 16 127/83 98 03/12/17 00:00 98.2 F 72 20 99/64 95 03/11/17 16:26 88 18 03/11/17 14:41 78 16 103/70 99 - General General Appearance: Alert, Oriented x3, Cooperative, Moderate distress Limitations: No limitations - Head Head exam: Atraumatic, Normocephalic, Normal inspection Head exam detail: negative: Abrasion, Contusion, General tenderness, Hematoma, Laceration - Eye Eye exam: Normal appearance. negative: PERRL, Conjunctival injection, Periorbital swelling, Periorbital tenderness - ENT ENT exam: Normal exam, Mucous membranes moist Ear exam: Normal external inspection Nasal Exam: Normal inspection Mouth exam: Normal external inspection - Neck Neck exam: Normal inspection, Full ROM. negative: Tenderness - Respiratory Respiratory exam: Normal lung sounds bilaterally. negative: Chest wall tenderness, Respiratory distress, Rhonchi, Stridor, Wheezes - Cardiovascular Cardiovascular Exam: Regular rate, Normal rhythm, Normal heart sounds Peripheral Pulses: 2+: Radial (R), Radial (L), Dorsalis Pedis (R), Dorsalis Pedis (L) - GI/Abdominal GI/Abdominal exam: Soft. negative: Tenderness - Rectal Rectal exam: Deferred - exam: Deferred - Extremities Extremities exam: Joint swelling, Normal capillary refill, Other (CMS intact to distal RUE, soft tissue swelling apparent to right fingers, + full ROM). negative: Calf tenderness, Full ROM, Pedal edema - Back Back exam: Reports: Normal inspection, Full ROM. Denies: CVA tenderness (R), CVA tenderness (L), Tenderness - Neurological Neurological exam: Alert, Oriented X3. negative: Motor sensory deficit ( sensation is intact to the RUE to the finger tips, moves fingers and wrist without difficulty) - Psychiatric Psychiatric exam: Normal affect, Normal mood - Skin Skin exam: Dry, Intact, Normal color, Warm Assessment and Plan - Inpatient Certification Inpatient Certification: Admit to inpatient care: Based on my medical assessment, after consideration of patient's risk factors (age, co-morbidities and patient presenting symptoms and acuity), I expect that this patient will remain in the hospital greater than or equal to two midnights and that the services needed warrant inpatient care because: Patient Risk Factors: [pain, fracture, ortho consult, PT/OT] Estimated length of stay: [48-72 hours] The patient may reasonably be expected to be discharged or transferred to a hospital within 96 hours after admission to [facility]. Services needed: [PT/OT, nursing, orthopedics, carotid dopplers] Post hospital care (if known): [] I certify that my determination is in accordance with my understanding of Medicare requirements for reasonable and necessary inpatient services. 03/12/17 09:28 03/12/17 09:30 - Assessment and Plan (1) Humerus fracture Current Visit: Yes Status: Acute Qualifiers: Encounter type: initial encounter Humerus Location: proximal Fracture type: closed Fracture morphology: unspecified fracture morphology Laterality : right Qualified Code(s): S42.201A - Unspecified fracture of upper end of right humerus, initial encounter for closed fracture Base Code: S42.309A - UNSP FRACTURE OF SHAFT OF HUMERUS, UNSP ARM, INIT Comment: 03/12/17- - consult Dr Rodriguez complete, will follow up with him as outpatient in 2 weeks - PT/OT - right arm sling - NWB RUE - pain control with morphine sulfate and percocet ( nursing advised to use Percocet first as monitor BP prior to using MS if absolutely necessary as causes hypotension) (2) Fall (on)(from) incline, initial encounter Current Visit: Yes Status: Acute Base Code: W10.2XXA - FALL (ON)(FROM) INCLINE, INITIAL ENCOUNTER Comment: 03/12/17 - frequent reports of imbalance and near falls at home for> 6 months - fall risk, on anticoagulation therapy fdc for a-fib, PVD with BLE neuropathy - carotid dopplers today - Head CT negative for acute process - PT/OT - may benefit from either [facility] vs. home PT/OT - may benefit from ENT as outpatient for vertigo ( if carotid dopplers negative) - hx TIA 2010 and 2011, reports dizziness occurred years after these (3) Contusion, knee Current Visit: Yes Status: Acute Qualifiers: Encounter type: initial encounter Laterality: right Qualified Code(s): S80.01XA - Contusion of right knee, initial encounter Base Code: S80.00XA - CONTUSION OF UNSPECIFIED KNEE, INITIAL ENCOUNTER Comment : 03/12/17- stable (4) Full code status Current Visit: Yes Status: Acute Base Code: Z78.9 - OTHER SPECIFIED HEALTH STATUS Comment: 03/12/17- will remain full code during this hospitalization (5) DVT prophylaxis Current Visit: Yes Status: Acute Base Code: [id number] - Comment: 03/12/17- on long-term coumadin therapy - INR daily - PharmD to follow Results - Labs Result Diagrams: 03/11/17 11:00 03/11/17 11:00 Labs Last 24 Hours: Laboratory Results - last 24 hr 03/12/17 06:28 PT 28.6 H INR 2.62 DVT/PE Assessment - Risk for VTE Risk for VTE: No Risk Level: Low Risk Assessment Date: 03/12/17 Risk Assessment Time: 09:05 VTE Orders Placed or Will Be Placed: Yes - Active Medicaitons Current Medications: Current Medications Acetaminophen (Tylenol 500mg Tab) 1,000 mg PO Q6H PRN PRN Reason: PAIN/TEMP Alprazolam (Xanax) 0.25 mg PO BID [facility] Last Admin: 03/11/17 21:42 Dose: 0.25 mg Amitriptyline HCl (Elavil) 75 mg PO QHS [facility] Last Admin: 03/11/17 21:42 Dose: 75 mg Gabapentin (Neurontin) 600 mg PO TID [facility] Last Admin: 03/11/17 21:41 Dose: 600 mg Levothyroxine Sodium (Synthroid) 75 mcg PO DAILYTHY [facility] Last Admin: 03/12/17 06:27 Dose: 75 mcg Loratadine (Claritin) 10 mg PO DAILY [facility] Morphine Sulfate (Morphine Sulfate) 5 mg IVP Q4H PRN PRN Reason: Pain - General Stop: 03/18/17 14:51 Oxycodone/Acetaminophen (Percocet 7.5-325 Mg Tablet) 1 each PO Q6H PRN PRN Reason: Pain - General Stop: 03/19/17 09:18 Pantoprazole Sodium (Protonix) 80 mg PO DAILYAC [facility] Last Admin: 03/12/17 06:27 Dose: 80 mg Venlafaxine HCl (Effexor Xr) 150 mg PO BID [facility] Last Admin: 03/11/17 21:41 Dose: 150 mg Warfarin Sodium ([facility]in) [facility]) [facility] Zolpidem Tartrate (Ambien) 10 mg PO QHS [facility] Last Admin: 03/11/17 21:42 Dose: 10 mg AMI Plan - Labs Result Diagrams: 03/11/17 11:00 03/11/17 11:00
[2017-03-12] MEDS: VENLAFAXINE ER 75 MG CAPSULE PO SCH ×2 (09:34→21:10)
[2017-03-12] MEDS: LORATADINE 10 MG TABLET PO SCH (09:34)
[2017-03-12] MEDS: ALPRAZOLAM 0.25 MG TABLET PO SCH ×2 (09:34→21:09)
[2017-03-12] MEDS: GABAPENTIN 300 MG CAPSULE PO SCH ×3 (09:34→21:09)
[2017-03-12] MEDS ORDERED: WARFARIN 5 MG TAB PO SCH (10:00)
--- NOTE | 2017-03-12 13:50 | US CAROTID DOPPLER REPORT ---
EXAM: BILATERAL CAROTID DOPPLER ULTRASOUND HISTORY: DIZZINESS WITH FALL. HEADACHE. VISUAL DISTURBANCE. TECHNIQUE: Enciso scale, color Doppler and Duplex Doppler evaluation of the cervical arteries was performed. Comparison: None. FINDINGS: The enciso scale images do not demonstrate significant plaque formation in the cervical carotid arteries. The internal carotid arteries are tortuous. 3 Vessel Right Peak Systolic/ End Diastolic Velocities Left Peak Systolic/ End Diastolic Velocities Proximal Common Carotid Artery 124 cm/s/22 cm/s 116 cm/s/25 cm/s Mid Common Carotid Artery 89 cm/s/19 cm/s 104 cm/s/25 cm/s Distal Common Carotid Artery 129 cm/s/32 cm/s 94 cm/s/22 cm/s Proximal Internal Carotid Artery 90 cm/s/27 cm/s 64 cm/s/29 cm/s Mid Internal Carotid Artery 82 cm/s/31 cm/s 96 cm/s/35 cm/s Distal Internal Carotid Artery 102 cm/s/27 cm/s 82 cm/s/31 cm/s Carotid Bulb 56 cm/s/18 cm/s 56 cm/s/6 cm/s Proximal External Carotid Artery 97 cm/s/16 cm/s 75 cm/s/9 cm/s d d d Vertebral Artery 41 cm/s 55 cm/s Antegrade flow is demonstrated in each vertebral artery. The ICA/CCA ratio on the right is 0.8 while on the left it is 0.9. IMPRESSION: 1. THE CERVICAL CAROTID ARTERIES ARE TORTUOUS BILATERALLY. 2. NO SIGNIFICANT PLAQUE VISUALIZED ON ENCISO SCALE IMAGES. NO DOPPLER EVIDENCE OF CLINICALLY SIGNIFICANT STENOSIS. JOB NUMBER: [id number] [facility]
--- NOTE | 2017-03-12 14:53 | Physical Therapy Tx Note ---
Physical Therapy Tx Note - Treatment Note Tolerated: Fair Total Time Spent With Patient: 25 Physical Therapy Tx Note: Detail (Pt in bed upon arrival, states she just returned from the bathroom, refused to ambulate. Stated that she was having more pain with movement, all over and not just her shoulder, and that pain meds weren't helping much. Coaxed into participating for balance assessment; completed [place] Balance test, scored 42/56: requires (L) hand to come to standing independently, controls descent by using L hand, transfers safely w/ definite need of hands, can reach forward 5 inches safely; unable to supervisor picking crew object from floor/needs supervision while trying; able to complete 4 alternate steps w/o aid w/supervision; unable to try to stand on one leg. Instructed in lowering head and foot of bed to flatten it to position self up higher, using bent legs to help scoot self sideways and up. Encouraged to sit up longer, walk frequently; consider bringing cane in for better stability. Positioned in bed w/call light and bedside table in reach; nrsg notified. Discussed use of ice pack on shoulder w/nrsg.) Physical Therapy Problem List: Detail (1. Requires assist for bed mobility and positioning. 2. Requires contact guard assist for transfers and gait. 3. History of unsteadiness on uneven surfaces.) Physical Therapy Goals: 1. Pt will be independent w/bed mobility and transfers. 2. Pt will safely and independently ambulate over household distances/ surfaces w/ or w/o single tip cane. 3. Pt will complete [place] Balance test to identify balance difficulties. 4. Pt will be independent w/ a basic home exercise program. Prognosis: Moderate Physical Therapy Plan: Pt will be seen 1-2x/daily M-F to facilitate safety w/ mobility, balance training, instruction in home exercise program.
[2017-03-12] MEDS: AMITRIPTYLINE 25 MG TABLET PO SCH (21:09)
[2017-03-12] MEDS: ZOLPIDEM TARTRATE 5 MG TABLET PO SCH (21:11)
[2017-03-12] MEDS: OXYCODONE/APAP 10MG-325MG TABLET PO PRN (21:14)
[2017-03-13] MEDS: OXYCODONE/APAP 10MG-325MG TABLET PO PRN ×3 (02:44→13:02)
[2017-03-13] MEDS: PANTOPRAZOLE SODIUM 40 MG TABLET PO SCH (06:01)
[2017-03-13] MEDS: LEVOTHYROXINE SODIUM 75 MCG TABLET PO SCH (06:01)
[2017-03-13 06:34] LABS: INR 3.04; PROTHROMBIN TIME (PATIENT) 33.2 SECONDS (9.5-12.1)
[2017-03-13] MEDS: LORATADINE 10 MG TABLET PO SCH ×2 (07:56→11:30)
[2017-03-13] MEDS: VENLAFAXINE ER 75 MG CAPSULE PO SCH ×2 (07:56→11:32)
[2017-03-13] MEDS: ALPRAZOLAM 0.25 MG TABLET PO SCH ×2 (07:57→11:33)
[2017-03-13] MEDS: GABAPENTIN 300 MG CAPSULE PO SCH ×2 (07:57→11:32)
[2017-03-13] MEDS ORDERED: WARFARIN 1 MG TABLET PO SCH (10:00)
--- NOTE | 2017-03-13 13:26 | Discharge Summary ---
Providers Discharge Summary Date: 03/13/17 Date of admission: 03/11/17 13:56 Expected Date of Discharge: 03/13/17 Attending physician: WYATT WARD Primary care physician: Stefanie Bowie N.P. Physical Exam - Vital Signs Vital Signs: Vital Signs - Last 24 Hrs Temp Pulse Resp BP Pulse Ox 03/13/17 09:00 20 03/13/17 07:41 97.4 F L 75 18 118/61 95 03/13/17 00:00 98.6 F 80 18 106/74 96 03/12/17 21:00 16 03/12/17 16:00 87 16 109/68 94 L - General General Appearance: Alert, Oriented x3, Cooperative, No acute distress Limitations: No limitations - Head Head exam: Atraumatic, Normocephalic, Normal inspection Head exam detail: negative: Abrasion, Contusion, General tenderness, Hematoma, Laceration - Eye Eye exam: Normal appearance. negative: PERRL, Conjunctival injection, Periorbital swelling, Periorbital tenderness - ENT ENT exam: Normal exam, Mucous membranes moist Ear exam: Normal external inspection Nasal Exam: Normal inspection Mouth exam: Normal external inspection - Neck Neck exam: Normal inspection, Full ROM. negative: Tenderness - Respiratory Respiratory exam: Normal lung sounds bilaterally. negative: Chest wall tenderness, Respiratory distress, Rhonchi, Stridor, Wheezes - Cardiovascular Cardiovascular Exam: Regular rate, Normal rhythm, Normal heart sounds Peripheral Pulses: 2+: Radial (R), Radial (L), Dorsalis Pedis (R), Dorsalis Pedis (L) - GI/Abdominal GI/Abdominal exam: Soft. negative: Tenderness - Rectal Rectal exam: Deferred - exam: Deferred - Extremities Extremities exam: Joint swelling, Normal capillary refill, Other (CMS intact to distal RUE, soft tissue swelling apparent to right fingers, + full ROM). negative: Calf tenderness, Full ROM, Pedal edema - Back Back exam: Reports: Normal inspection, Full ROM. Denies: CVA tenderness (R), CVA tenderness (L), Tenderness - Neurological Neurological exam: Alert, Oriented X3. negative: Motor sensory deficit ( sensation is intact to the RUE to the finger tips, moves fingers and wrist without difficulty) - Psychiatric Psychiatric exam: Normal affect, Normal mood - Skin Skin exam: Dry, Intact, Normal color, Warm Hospitalization - Hospitalization Admission Diagnosis: Humerus Fracture, knee contusion - Problem List/Discharge Diagnosis (1) Humerus fracture Status: Acute Discharge Diagnosis: Encounter type: initial encounter Humerus Location: proximal Fracture type: closed Fracture morphology: unspecified fracture morphology Laterality : right Qualified Code(s): S42.201A - Unspecified fracture of upper end of right humerus, initial encounter for closed fracture Base Code: S42.309A - UNSP FRACTURE OF SHAFT OF HUMERUS, UNSP ARM, INIT Comment: 03/13/17- pain significantly improved with use of Percocet 10/ Q 4 hrs PRN - consult Dr Rodriguez complete, will follow up with him as outpatient in 2 weeks - declined need for PT/OT both outpatient or inpatient - has returned to independent function - right arm sling until follow up with Dr Rodriguez - NWB RUE - continue Percocet as needed until follow up with PCP - advised she will be returning to her regular routine Hamler as at home before admission after acute phase of shoulder pain has passed (2) Fall (on)(from) incline, initial encounter Status: Acute Base Code: W10.2XXA - FALL (ON)(FROM) INCLINE, INITIAL ENCOUNTER Comment: 03/13/17 - frequent reports of imbalance and near falls at home for> 6 months - fall risk, on anticoagulation therapy custodial for a-fib, PVD with BLE neuropathy - carotid dopplers normal - Head CT negative for acute process - declined home PT/OT - follows with ENT as outpatient for chronic sinus obstructions, s/p sinus reconstruction x 2 (dizziness started about the same time as her last sinus surgery 6 months ago) - follow up with ENT as scheduled - would benefit from outpatient PT/OT for falls should she agree (3) Contusion, knee Status: Acute Discharge Diagnosis: Encounter type: initial encounter Laterality: right Qualified Code(s): S80.01XA - Contusion of right knee, initial encounter Base Code: S80.00XA - CONTUSION OF UNSPECIFIED KNEE, INITIAL ENCOUNTER Comment : 03/13/17- stable (4) Full code status Status: Acute Base Code: Z78.9 - OTHER SPECIFIED HEALTH STATUS Comment: 03/12- will remain full code during this hospitalization (5) DVT prophylaxis Status: Acute Base Code: [id number] - Comment: 03/13/17- on long-term coumadin therapy - INR daily, therapeutic at time of discharge - PharmD to follow - Hospitalization Course Disposition: Home, Self-Care Hospital Course: History of Present Illness: 66 y/o female s/p fall with right shoulder pain admitted for right minimally displaced distal humerus fracture. Past medical history includes pneumonia, DVT 2002, a-fib, PVD, TIA 2010 and 2012, migraines, GERD, IBS, hypothyroidism, osteoarthritis, fibromyalgia, OP, anemia, chronic warfarin use. PAST SURGICAL HISTORY Past Surgical History hysterectomy; gall bladder; bowel bypass with gastric bypass 44yrs ago; shoulder repair-clavicle fx(left); x2; wrist sx-right (bone spur removed); ankle sx-ligament repair right; sinus reconstruction x4; EGDs; abdominal scar tissue revision; colonoscopies. Prior to arrival was at [employer], tripped on curb and landed on right shoulder approximately 1030 in the am. Denies hitting head, no associated dizziness or LOC. Arrived in ED a few hours later for persistent right shoulder pain. Does report has had intermittent episodes of vertigo for years, episodes occur several times per week. Has never been worked up for this. No associated CP, diaphoresis, LOC with these episodes. Will lose her balance, will have to grab onto nearby items. Rarely falls with these. 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 While in the ED was found to have a right minimally displaced distal humerus fracture. Arm was put in a sling and orthopedics consulted. CT head negative for acute process. Pain difficult to control in the ED. Morphine given x 2 with subsequent episodes of hypotension. Admitted for pain control, carotid dopplers for recurrent dizziness and imbalance, and orthopedic consult. 03/11/17- resting in bed, right shoulder very painful. CMS intact to right distal extremity. BP improved after arriving to the floor. Orthopedics had already consulted, planning for outpatient follow up in [address] [facility] PCP: Stefanie [facility] Nurse: Dr López Procedures: Imaging and X-Rays 03/12/17 09:00 ARTERIAL DOPPLER CAROTID SAULO [US] Stat Abnormal Labs: Abnormal Lab Results 03/12/17 03/13/17 Range/Units 06:28 06:00 PT 28.6 H 33.2 H (9.5-12.1) SECONDS Condition at Discharge: (2) Stable Discharge Medications - Discharge Medications Prescriptions: Oxycodone HCl/Acetaminophen [Percocet 10mg/325mg] 1 each PO Q4H PRN #30 tab PRN Reason: Pain - General Home Medications: Ambulatory Orders Alprazolam 0.25 mg PO BID 12/09/13 [Last Taken 07/20/16] Omeprazole 40 mg PO DAILYAC 12/09/13 [Last Taken 07/20/16] Venlafaxine HCl [Venlafaxine HCl ER] 150 mg PO BID 12/09/13 [Last Taken 07/20/16 ] Zolpidem Tartrate 10 mg PO QHS 12/09/13 [Last Taken 07/20/16] Amitriptyline HCl 75 mg PO QHS 09/08/14 [Last Taken 07/20/16] Hydrocodone/Acetaminophen [Hamler 7.5mg/325mg] 1 tab PO Q6H PRN #7 tab 07/21/16 [ Last Taken Unknown] Warfarin Sodium 4 mg PO SUTUTHSA #30 tab 03/10/17 [Last Taken Unknown] Calcium Carbonate [Calcium] 600 mg PO BID 03/11/17 [Last Taken Unknown] Docusate Sodium [Stool Softener] 100 mg PO DAILY 03/11/17 [Last Taken Unknown] Ergocalciferol (Vitamin D2) [Vitamin D2] 50,000 unit PO ASDIR 03/11/17 [Last Taken Unknown] Gabapentin [Neurontin] 600 mg PO TID 03/11/17 [Last Taken Unknown] Warfarin Sodium [Coumadin] 5 mg PO MOWEFR 03/11/17 [Last Taken Unknown] Gabapentin [Neurontin] 600 mg PO TID 03/13/17 [Last Taken Unknown] Oxycodone HCl/Acetaminophen [Percocet 10mg/325mg] 1 each PO Q4H PRN #30 tab [Last Taken Unknown] Discharge Plan - Discharge Instructions Activity at Discharge: Increase Activity as Tolerated Diet at Discharge: Advance to Usual Diet Instructions: Proximal Humerus Fracture (DC) Additional Instructions: - Follow up with Stefanie as scheduled - Do not take Hamler while taking Percocet - Follow up with Dr Rodriguez as scheduled Resume home meds Wear sling Watch for increased swelling, blue fingertips-have checked in the ED, or by Bri Reeder. Quality Measures - Quality Measures Quality Measures: Advance Directives, Documentation of Current Medications in Medical Record, Elder Maltreatment Screen and Follow-Up Plan, Screening for High Blood Pressure and F/U Documented - Current Medications Quality Measure: Measure #130: Documentation of Current Medications Documentation of Current Medications: <Current Medications Documented/Reviewed> [Z2384] - Blood Pressure Screening Quality Measure: Screening for High Blood Pressure and Follow-Up Documented Does Patient Have Any of the Following: No Blood Pressure Classification: Normal BP Reading Systolic Measurement: 114 Diastolic Measurement: 73 Screening for High Blood Pressure: < Normal BP, F/U Not Required > [G2377] - Advance Directives Quality Measure: Measure #47: Care Plan Advance Directives Established: No Advance Directives Information Provided To Patient: Declined Advance Directives on File: No Living Will: No Power of Javascript Front End Developer: Yes Power of Javascript Front End Developer Name: Bell Downey Advance Care Planning: <Care Plan/Decision Maker Documented; Discussed & Documented> [[id number]] - Elder Abuse Suspicion Index Screening: Elder Abuse Suspicion Index Screening Rely on people for bathing, dressing, shopping, banking, etc: No Prevented from getting food, clothes, medication, etc: No Made to feel shamed or threatened by someone: No Forced to sign papers or use money against will: No Feel afraid, touched in ways not wanted or hurt physically: No Poor eye contact, withdrawn, malnourished, cuts or bruises: No Screening Result: Negative result EASI Reference Information: Freddy PADILLA, Gretchen C, Rick D, Rashel Mariscal.Development and validation of a tool to assist physicians identification of elder abuse: The Elder Abuse Suspicion Index (EASI ). Journal of Elder Abuse and Neglect, 2008; 20 (3): 276-300. - Elder Maltreatment Screen Quality Measures: Elder Maltreatment Screen and Follow-Up Plan Elder Maltreatment Screen: <Negative, No Follow-Up Plan Required> [G1834]
--- NOTE | 2017-03-16 11:30 | Medical Records Consult ---
DATE OF CONSULTATION: 03/11/2017 CONSULTING PHYSICIAN: Mac Rodriguez DO REFERRING PHYSICIAN: Stefanie Bowie NP ADMITTING DIAGNOSIS: Comminuted fracture of the right proximal humerus. HISTORY: This 66-year-old female was admitted to the hospital after a fall, which occurred at the [facility] in [place]. Apparently, she stumbled and fell forward into a glass door, but her right shoulder structure the metal bar across the door, and she subsequently fell down to the ground and was brought to the hospital for evaluation and treatment. The patient was complaining of severe right shoulder pain. She does not recall any loss of consciousness, and states that she has fallen on multiple occasions in the past. Patient currently is on Coumadin. Patient did have x-rays of her right shoulder, which were obtained by Dr. Umair Dial, the Emergency Room physician. These films demonstrate what appears to be a 3-part proximal humeral fracture, which is mildly subluxed, but there does not appear to be any evidence of dislocation. I do not see any fracture of the glenoid or scapular clavicle. The physical examination shows exquisite tenderness to palpation of the right proximal humerus. The elbow is not tender, and the neurovascular status of her right hand is intact. The DIAGNOSTIC IMPRESSION: Comminuted fracture of the right proximal humerus (3-part). RECOMMENDATIONS: 1. I recommended continued use of sling immobilization. 2. Follow up in the Orthopedic Clinic in 2 weeks for repeat x-ray. 3. Pain medication as required to control her discomfort. NERI
== END 2017-03-13 14:25 | disposition home or self-care (01) | DRG 563 ==
LOC: ER 10:37 → MEDSURG 13:56
PROVIDERS: ADMIT Family Medicine; ATTEND Family Medicine
DX: S42.254A Nondisplaced fracture of greater tuberosity of right humerus, initial encounter for closed fracture (principal); R42 Dizziness and giddiness; S80.02XA Contusion of left knee, initial encounter; R51 Headache; E03.9 Hypothyroidism, unspecified; R26.89 Other abnormalities of gait and mobility; I48.2 Chronic atrial fibrillation; Z79.01 Long term (current) use of anticoagulants; M79.7 Fibromyalgia; K58.9 Irritable bowel syndrome, unspecified; Z91.81 History of falling; W18.39XA Other fall on same level, initial encounter; Y92.89 Other specified places as the place of occurrence of the external cause; Y99.9 Unspecified external cause status
CPT/HCPCS: 93041; 99285 ×2; 96376; 96374; 85025; 85730; 85610; 80048; 73080; 73562; 73030; 70450; G0480; J2270 ×2; 80320; 93880; 97530; 99223; 99239

== ENCOUNTER 2017-07-13 09:33 | Emergency (ER) | payer MEDICARE, BC ==
[2017-07-13] MEDS ORDERED: HYDROMORPHONE HCL 1 MG/ML SYRINGE IVP ONE (10:08)
[2017-07-13] MEDS ORDERED: PROMETHAZINE HCL 12.5 MG in 0.9 % SODIUM CHLORIDE 100ML 100 ML IVPB ONE (10:08)
[2017-07-13 10:29] LABS: BASO % 0.2 % (0-6); EOS % 2.2 % (0-6); GRAN % 75.8 % (47-80); HEMATOCRIT 39.5 % (35.0-47.0); HEMOGLOBIN 11.6 gm/dl (11.6-16.0); LYMPH % 13.9 % (16-45); MEAN CELL VOLUME 99.2 fl (81-97); MEAN CORPUSCULAR HEMOGLOBIN 29.1 pg (27-33); MEAN CORPUSCULAR HGB CONC 29.4 g/dl (32-36); MEAN PLATELET VOLUME 10.5 fl (7.4-10.4); MONO % 7.9 % (0-9); PLATELET COUNT 402 K/uL (130-400); RED BLOOD COUNT 3.98 M/uL (3.80-5.40); RED CELL DISTRIBUTION WIDTH 14.8 % (11.5-14.5); WHITE BLOOD COUNT W/O DIFF 12.5 K/uL (4.2-12.2)
[2017-07-13 10:30] LABS: URINE APPEARANCE CLEAR; URINE BILIRUBIN NEGATIVE (NEGATIVE); URINE BLOOD NEGATIVE (NEGATIVE); URINE COLOR YELLOW; URINE GLUCOSE (UA) NEGATIVE (NEGATIVE); URINE KETONE NEGATIVE (NEGATIVE); URINE LEUKOCYTE ESTERASE NEGATIVE (NEGATIVE); URINE NITRITE NEGATIVE (NEGATIVE); URINE PROTEIN NEGATIVE (NEGATIVE); URINE UROBILINOGEN 0.2 E.U./dL (0.20 - 1.00)
[2017-07-13 10:43] LABS: INR 4.02
[2017-07-13 10:46] LABS: BLOOD UREA NITROGEN 15 mg/dL (8-23); CREATININE 0.7 mg/dL (0.5-0.9); EST GLOMERULAR FILTRATION RATE > 60 mL/min
[2017-07-13 10:49] LABS: GLUCOSE,RANDOM 84 mg/dL (74-109)
--- NOTE | 2017-07-13 11:55 | Emergency Department Record ---
History of Present Illness - General Chief Complaint: Fall Injury Stated Complaint: FALL/BACK PAIN Time Seen by Provider: 07/13/17 10:03 Source: Patient Mode of Arrival: Ambulatory Limitations: No limitations - History of Present Illness Initial Comments: pt fell yesterday onto back. pt has significat pain in back. she is taking coumadin. she denies hitting her head Complaint: Fall Onset/Timin -: Hour(s) Fall From: Standing When Fall Occurred: 24 hours [employer] Fall Witnessed: Yes, by family Place Fall Occurred: Home Loss of Consciousness: None Prolonged Down Time?: No Symptoms Prior to Fall: None Location: Back Severity: Moderate Severity scale (1-10): 10 Quality: Aching - Faina Coma Scale Eye Response: (4) Open spontaneously Motor Response: (6) Obeys commands Verbal Response: (5) Oriented [place] Total: 15 - Related Data Previous Rx's Medication Instructions Recorded Hydrocodone/Acetaminophen [[place] 1 tab PO Q6H PRN #7 tab 07/21/16 7.5mg/325mg] Gabapentin [Neurontin] 600 mg PO TID 03/13/17 Hydrocodone/Acetaminophen [[place] 1 each PO Q6HR #10 tablet 07/13/17 7.5-325 Tablet] Allergies Allergy/AdvReac Type Severity Reaction Status Date / Time Sulfa (Sulfonamide Allergy Severe ANAPHYLAXIS Verified 07/13/17 09:47 Antibiotics) rivaroxaban [From Xarelto] Allergy Intermediate RASH Verified 07/13/17 09:47 codeine AdvReac Intermediate NAUSEA AND Verified 07/13/17 09:47 VOMITING pregabalin [From Lyrica] AdvReac Intermediate BLURRED Verified 07/13/17 09:47 VISION Travel Screening - Travel/Exposure Within Last 30 Days Have you traveled within the last 30 days?: No - Travel/Exposure Within Last Year Have you traveled outside the [place] in the last year?: No - Additonal Travel Details Have you been exposed to anyone with a communicable illness?: No - Travel Symptoms Symptom Screening: None Review of Systems Reviewed: No additional complaints except as noted below Constitutional: Reports: As per HPI. Denies: Chills, Fever, Malaise, Night sweats, Weakness, Weight change Eyes: Reports: As per HPI. Denies: Eye discharge, Eye pain, Photophobia, Vision change ENT: Reports: As per HPI. Denies: Congestion, Dental pain, Ear pain, Epistaxis , Hearing loss, Throat pain Respiratory: Reports: As per HPI. Denies: Cough, Dyspnea, Hemoptysis, Stridor, Wheezes Cardiovascular: Reports: As per HPI. Denies: Arrhythmia, Chest pain, Dyspnea on exertion, Edema, Murmurs, Orthopnea, Palpitations, Paroxysmal nocturnal dyspnea, Rheumatic Fever, Syncope Endocrine: Reports: As per HPI. Denies: Fatigue, Heat or cold intolerance, Polydipsia, Polyuria Gastrointestinal: Reports: As per HPI. Denies: Abdominal pain, Constipation, Diarrhea, Hematemesis, Hematochezia, Melena, Nausea, Vomiting Genitourinary: Reports: As per HPI. Denies: Abnormal menses, Discharge, Dyspareunia, Dysuria, Frequency, Hematuria, Incontinence, Retention, Urgency Musculoskeletal: Reports: As per HPI. Denies: Arthralgia, Back pain, Gout, Joint swelling, Myalgia, Neck pain Skin: Reports: As per HPI. Denies: Bruising, Change in color, Change in hair/ nails, Lesions, Pruritus, Rash Neurological: Reports: As per HPI. Denies: Abnormal gait, Confusion, Headache, Numbness, Paresthesias, Seizure, Tingling, Tremors, Vertigo, Weakness Psychiatric: Reports: As per HPI. Denies: Anxiety, Auditory hallucinations, Depression, Homicidal thoughts, Suicidal thoughts, Visual hallucinations Hematological/Lymphatic: Reports: As per HPI. Denies: Anemia, Blood Clots, Easy bleeding, Easy bruising, Swollen glands Past Medical History - SOCIAL HISTORY Smoking Status: Never smoker Alcohol Use: None Drug Use: None - RESPIRATORY Hx Respiratory Disorders: Yes Hx Bronchitis: Yes (none recently) Hx Pneumonia: Yes (6 yrs ago) - CARDIOVASCULAR Hx Cardio Disorders: Yes Hx Deep Vein Thrombosis: Yes (right leg 2002) Hx Irregular Heartbeat: Yes (A-fib) Hx Vascular Disease: Yes (peripheral vascular disease) - NEURO Hx Neuro Disorders: Yes Hx Headaches: Yes Hx of Migraines: Yes Hx TIA: Yes (2010) - GI Hx GI Disorders: Yes Hx Reflux: Yes (on omeprazole) Hx Irritable Bowel: Yes Hx Wt Loss/Wt Gain: (.) - Hx Genitourinary Disorders: No Comment:: hysterectomy - ENDOCRINE Hx Endocrine Disorders: Yes Hx Thyroid Disease: Yes (hypo active) - MUSCULOSKELETAL Hx Musculoskeletal Disorders: Yes Hx Arthritis: Yes (all over) Hx Fibromyalgia: Yes Hx Osteoporosis: Yes - PSYCH Hx Psych Problems: Yes Hx Anxiety: Yes Hx Depression: Yes - HEMATOLOGY/ONCOLOGY Hx Hematology/Oncology Disorders: Yes Hx Anemia: Yes Hx Bruising: Yes (on warfarin) Hx Blood Transfusions: Yes Hx Blood Transfusion Reaction: No Comment:: has yearly iron infusions-done August 2016 Family Medical History Any Significant Family History?: Yes Hx Alcohol Use: Father, Brother/Sister Hx Anxiety: Mother Hx Cancer: Grandparents Hx Dementia: Mother Hx Depression: Mother Hx Diabetes: Mother Hx Heart Disease: Father Hx HTN: Father Hx Resp Disorders: Mother Hx Stroke: Mother Physical Exam - General General Appearance: Alert, Oriented x3, Cooperative, Mild distress - Head Head exam: Normal inspection - Eye Eye exam: Normal appearance, PERRL, EOMI Pupils: Normal accommodation - ENT ENT exam: Normal exam, Mucous membranes moist, Normal external ear exam, Normal orophraynx Ear exam: Normal external inspection. negative: External canal tenderness Nasal Exam: Normal inspection. negative: Discharge, Sinus tenderness Mouth exam: Normal external inspection, Tongue normal Teeth exam: Normal inspection. negative: Dental caries Throat exam: Normal inspection. negative: Tonsillar erythema, Tonsillar exudate - Neck Neck exam: Normal inspection, Full ROM. negative: Tenderness - Respiratory Respiratory exam: Normal lung sounds bilaterally. negative: Respiratory distress - Cardiovascular Cardiovascular Exam: Regular rate, Normal rhythm, Normal heart sounds - GI/Abdominal GI/Abdominal exam: Soft, Normal bowel sounds. negative: Tenderness - Rectal Rectal exam: Deferred - exam: Deferred - Extremities Extremities exam: Normal inspection, Full ROM, Normal capillary refill. negative: Tenderness - Back Back exam: Reports: CVA tenderness (R), CVA tenderness (L), Full ROM, Tenderness. Denies: Muscle spasm, Rash noted - Neurological Neurological exam: Alert, CN II-XII intact, Normal gait, Oriented X3 - Psychiatric Psychiatric exam: Normal affect, Normal mood - Skin Skin exam: Dry, Intact, Normal color, Warm, Other (extensive ecchymosis to back) Distribution of rash: Back Course Vital Signs 07/13/17 07/13/17 09:39 11:42 Temperature 98.1 F Pulse Rate 86 Pulse Rate [ 78 Pulse Ox Probe] Respiratory 20 18 Rate Blood Pressure 133/85 Blood Pressure 129/91 [Left Arm] Pulse Ox 95 98 Medical Decision Making - Lab Data Result diagrams: 07/13/17 10:20 07/13/17 10:20 Lab Results 07/13/17 07/13/17 07/13/17 Range/Units 10:20 10:20 10:20 WBC 12.5 H (4.2-12.2) K/uL RBC 3.98 (3.80-5.40) M/uL Hgb 11.6 (11.6-16.0) gm/dl Hct 39.5 (35.0-47.0) % MCV 99.2 H (81-97) fl MCH 29.1 (27-33) pg MCHC 29.4 L (32-36) g/dl RDW 14.8 H (11.5-14.5) % Plt Count 402 H (130-400) K/uL MPV 10.5 H (7.4-10.4) fl Gran % 75.8 (47-80) % Lymphocytes % 13.9 L (16-45) % Monocytes % 7.9 (0-9) % Eosinophils % 2.2 (0-6) % Basophils % 0.2 (0-6) % PT 44.0 H (9.5-12.1) SECONDS INR 4.02 Sodium 140 (136-145) mmol/L Potassium 4.2 (3.4-4.5) mmol/L Chloride 103 (98-107) mmol/L Carbon Dioxide 24.0 (22-29) mmol/L Anion Gap 13.0 (7-16) BUN 15 (8-23) mg/dL Creatinine 0.7 (0.5-0.9) mg/dL Estimated GFR > 60 mL/min Random Glucose 84 (74-109) mg/dL Calcium 8.4 L (8.8-10.2) mg/dL Urine Color Urine Appearance Urine pH (5.0-8.0) Ur Specific [place] (1.002-1.030) Urine Protein (NEGATIVE) Urine Glucose (UA) (NEGATIVE) Urine Ketones (NEGATIVE) Urine Blood (NEGATIVE) Urine Nitrite (NEGATIVE) Urine Bilirubin (NEGATIVE) Urine Urobilinogen (0.20 - 1.00) E.U./dL Ur Leukocyte Esterase (NEGATIVE) 07/13/17 Range/Units 10:20 WBC (4.2-12.2) K/uL RBC (3.80-5.40) M/uL Hgb (11.6-16.0) gm/dl Hct (35.0-47.0) % MCV (81-97) fl MCH (27-33) pg MCHC (32-36) g/dl RDW (11.5-14.5) % Plt Count (130-400) K/uL MPV (7.4-10.4) fl Gran % (47-80) % Lymphocytes % (16-45) % Monocytes % (0-9) % Eosinophils % (0-6) % Basophils % (0-6) % PT (9.5-12.1) SECONDS INR Sodium (136-145) mmol/L Potassium (3.4-4.5) mmol/L Chloride (98-107) mmol/L Carbon Dioxide (22-29) mmol/L Anion Gap (7-16) BUN (8-23) mg/dL Creatinine (0.5-0.9) mg/dL Estimated GFR mL/min Random Glucose (74-109) mg/dL Calcium (8.8-10.2) mg/dL Urine Color Yellow Urine Appearance Clear Urine pH 6.0 (5.0-8.0) Ur Specific [place] >= 1.030 (1.002-1.030) Urine Protein Negative (NEGATIVE) Urine Glucose (UA) Negative (NEGATIVE) Urine Ketones Negative (NEGATIVE) Urine Blood Negative (NEGATIVE) Urine Nitrite Negative (NEGATIVE) Urine Bilirubin Negative (NEGATIVE) Urine Urobilinogen 0.2 (0.20 - 1.00) E.U./dL Ur Leukocyte Esterase Negative (NEGATIVE) Disposition Disposition: Discharge Clinical Impression: Multiple contusions of trunk Qualifiers: Encounter type: initial encounter Qualified Code(s): S20.20XA - Contusion of thorax, unspecified, initial encounter Fall Qualifiers: Encounter type: initial encounter Qualified Code(s): W19.XXXA - Unspecified fall, initial encounter Disposition: Home, Self-Care Condition: (1) Good Instructions: Fall Prevention for Older Adults (ED), Contusion in Adults (ED) Additional Instructions: follow up with family doctor. return sooner if worse. ice to sore areas Prescriptions: Hydrocodone/Acetaminophen [[place] 7.5-325 Tablet] 1 each PO Q6HR #10 tablet Forms: Patient Portal Access Quality - Quality Measures Quality Measures: N/A - Blood Pressure Screening Does Patient Have Any of the Following: No Blood Pressure Classification: Pre-Hypertensive BP Reading Systolic Measurement: 133 Diastolic Measurement: 85 Screening for High Blood Pressure: < Pre-Hypertensive BP, F/U Documented > [ [id number]] Pre-Hypertensive Follow-up Interventions: Follow-up with rescreen every year.
--- NOTE | 2017-07-14 07:58 | CT SCAN REPORT ---
DATE: 07/13/2017 at 10:56 a.m. EXAM: CT OF THE ABDOMEN AND PELVIS WITH CONTRAST. HISTORY: Acute left flank pain with large bruising after falling yesterday, landing on back. TECHNIQUE: Axial CT scan of the abdomen and pelvis performed following the intravenous administration of 95 mL of Omnipaque 300 as the intravenous contrast. No oral contrast was utilized per the referring physician's request. COMPARISON: No prior CT of the abdomen and pelvis with which to compare. FINDINGS: On the upper images, there is an approximately 2.3 x 1.7 cm, slightly thick-walled, low-attenuation structure in the subcutaneous tissues of the lower right lateral chest wall with an even larger similar-appearing low- attenuation fluid collection in the left lower lateral chest wall measuring about 4.2 x 2.2 cm in size. These are of uncertain significance and may lie within breast tissue. Correlation with physical examination is suggested and follow-up mammography may be useful. Surgical clips in the region of the gallbladder fossa consistent with cholecystectomy. Apparent postoperative change in the region of the stomach as well. This may represent prior gastric bypass surgery. Uterus also not identified consistent with hysterectomy. No definite hepatic or splenic mass identified. There is a cleft in the spleen which is partially calcified which may be due to old injury but does not appear acute. No definite adrenal, pancreatic, or right renal mass. Tiny, low-attenuation mass in the left kidney is too small to accurately characterize but likely is a tiny renal cyst. There is bibasilar streaky atelectasis or infiltrate in the lung bases medially. No free intraperitoneal air or free intraperitoneal fluid evident. There is a battery pack in the subcutaneous tissues of the left buttock region with associated wire entering the spinal canal in the lower thoracic region and extending up to the approximate T7-8 interspace, presumably representing some form of pain stimulator device. Multilevel degenerative change in the lower thoracic and lumbar spine. Thoracolumbar curve to the right. Postoperative change involving the jejunum, probably related to gastric bypass surgery as well. Note is made of mild compression in the superior endplate of the body of L1. There is degenerative disc disease at the T12-L1 interspace and no retropulsion of the body of L1. This compression fracture does appear to have been present on two prior lateral chest x-rays dated 11/19/2015 and 10/06/2015 as well. IMPRESSION: 1. FAIRLY EXTENSIVE POSTOPERATIVE FINDINGS INCLUDING CHOLECYSTECTOMY, GASTRIC SURGERY PROBABLY REPRESENTING GASTRIC BYPASS SURGERY WITH ASSOCIATED JEJUNAL SURGERY, AND HYSTERECTOMY. THERE IS ALSO A BATTERY PACK IN THE SUBCUTANEOUS TISSUES OF THE LEFT BUTTOCK REGION WITH ASSOCIATED SPINAL WIRE, PROBABLY REPRESENTING A PAIN STIMULATOR DEVICE EXTENDING UP INTO THE LOWER THORACIC SPINE. 2. PARTIALLY CALCIFIED CLEFT IN THE SPLEEN MAY BE DUE TO OLD INJURY BUT DOES NOT APPEAR ACUTE. 3. PROBABLE SINGLE FLUID COLLECTIONS IN THE LATERAL ASPECTS OF BOTH LOWER HEMITHORACES, QUESTIONABLY IN LATERAL BREAST TISSUE, AND CORRELATION WITH PHYSICAL EXAMINATION IS SUGGESTED. FOLLOW-UP MAMMOGRAPHY MAY BE USEFUL. 4. PROBABLE TINY CYST IN THE LEFT KIDNEY. 5. MULTILEVEL DEGENERATIVE CHANGE IN THE SPINE. THERE IS MILD, CHRONIC- APPEARING COMPRESSION OF THE SUPERIOR ENDPLATE OF THE BODY OF L1 WHICH APPEARS TO HAVE BEEN PRESENT ON PRIOR LATERAL CHEST X-RAYS OF 11/19/2015 AND 10/06/2015 WELL. NO RETROPULSION OF THE BODY OF L1. JOB NUMBER: [id number] MTDD
--- NOTE | 2017-07-14 08:27 | CT SCAN REPORT ---
EXAM: LUMBAR SPINE CT WITHOUT CONTRAST HISTORY: ACUTE LEFT FLANK PAIN WITH LARGE BRUISING AFTER A FALL LANDING ON BACK YESTERDAY. TECHNIQUE: Axial CT scan of the entire lumbar spine was performed beginning in the lower thoracic region extending down throughout the sacrum. Comparison: No prior lumbar spine CT with which to compare. FINDINGS: There is a metallic battery pack within the subcutaneous tissues of the lower back on the left with the associated wire extending into the spinal canal at the approximate T9-T10 level and then extending up to the level of the T7-T8 interspace presumably representing some form of pain stimulator device. Surgical clips are seen in the left upper quadrant probably from prior gastric bypass surgery. Postop hysterectomy. Postop changes involving the jejunum probably related to gastric bypass surgery as well. Bibasilar atelectasis or infiltrate in the lung bases medially. There is mild compression of the superior end plate of the body of L1. This was present on the prior lateral chest x-rays dated 11/19/15 and 10/06/15 as well consistent with mild chronic compression fracture. No retropulsion of the body of L1. No definite acute fracture of the lumbar spine identified today. Mild thoracolumbar dextroscoliosis. Narrowing of the L1-L2 and to a lesser degree L4 -L5 interspaces consistent with degenerative disk disease. There is some spurring along the posterior aspect of the L2-L3 interspace impinging on the upper lateral recess of L3. IMPRESSION: 1. CHRONIC COMPRESSION SUPERIOR END PLATE OF L1 WITH NO RETROPULSION. 2. NO ACUTE FRACTURE OF THE LUMBAR SPINE IDENTIFIED. 3. MULTILEVEL DEGENERATIVE CHANGE NOTED ABOVE. JOB NUMBER: [id number] [facility]
== END 2017-07-13 13:04 | disposition home or self-care (01) ==
LOC: ER 09:33
DX: S20.20XA Contusion of thorax, unspecified, initial encounter (principal); M54.5 Low back pain; R10.32 Left lower quadrant pain; W00.0XXA Fall on same level due to ice and snow, initial encounter; Y92.009 Unspecified place in unspecified non-institutional (private) residence as the place of occurrence of the external cause; I48.91 Unspecified atrial fibrillation; Z79.01 Long term (current) use of anticoagulants
CPT/HCPCS: 99284 ×2; 96374; 96375; 85025; 85610; 80048; 81003; 72131; 74177; Q9967; J1170; J2550

== ENCOUNTER 2018-07-08 10:59 | Day surgery (SDC) | payer MEDICARE ==
[2018-07-08] MEDS ORDERED: LIDOCAINE 2% MDV (20MG/ML) 20ML VIAL IV ONE (11:00)
[2018-07-08] MEDS ORDERED: PROPOFOL 10 MG/ML VIAL IV ONE (11:00)
--- NOTE | 2018-07-13 09:00 | Operative Note ---
DATE OF SURGERY: 07/08/2018 SURGEON: Sachin Gill MD OPERATION: 1. ESOPHAGOGASTRODUODENOSCOPY. 2. Partial COLONOSCOPY. INDICATIONS: This is a 67-year-old female with history of abdominal pain and gastroesophageal reflux disease and screening colonoscopy. POSTOPERATIVE DIAGNOSES: 1. Normal esophagus. 2. Post gastric bypass anastomosis that is normal. 3. Normal jejunum. 4. Poor bowel preparation. ANESTHESIA: Sedation is per Anesthesia. Pulse oximetry was monitored throughout the procedure to maintain O2 saturation of 90% or greater. Supplemental oxygen was administered via nasal cannula. Cardiac and vital signs were monitored throughout the duration of the procedure, and they were stable. The procedures of esophagogastroduodenoscopy and colonoscopy and risks and benefits of the procedures, including the risk of bleeding and perforation, among others, were explained to the patient who voiced understanding and agreed to have the procedures done. Physical examination was performed, and the patient was found stable for sedation. PROCEDURE: The patient was placed in the left lateral position. Sedation was initiated. A plastic bite block was inserted into the oral cavity. The Olympus [id number] gastroscope was introduced into the oral cavity and advanced to the proximal esophagus without difficulty. The esophageal mucosa was carefully examined upon introduction of the gastroscope. The proximal and mid and distal esophageal mucosa appeared normal. The gastroscope was then advanced into the stomach. There was a small gastric pouch that was noted of about 3 cm. There are postsurgical changes consistent with Matteo-en-Y bypass surgery. The anastomosis was normal. The jejunum also appeared normal. The gastroscope was then withdrawn and the patient was repositioned for colonoscopy. A digital rectal exam was performed and showed some mild external hemorrhoids with no palpable rectal masses. An Olympus [id number]-180AL colonoscope was then inserted into the rectum under direct visualization. It was advanced to the descending colon without difficulty. The colonic mucosa was carefully examined upon introduction of the colonoscope. There was a large amount of stool debris in the sigmoid and proximal descending colon. This precluded further advancement of the colonoscope. The colonoscope was then withdrawn while carefully examining the colonic mucosal surfaces with no other lesions were noted. In the rectum, retroflexion was performed and grade 1 internal hemorrhoids were noted. The colonoscope was then withdrawn and the procedure was terminated. The patient tolerated the procedure well without any immediate complications. The patient remained with stable vital signs and was transferred to the recovery room. RECOMMENDATIONS: 1. The patient should stay on a high-fiber diet. 2. The patient is to have a repeat colonoscopy with 2-day bowel preparation for complete evaluation. Thank you for allowing me to participate in the care of your patient. CC: ARNALDO Pena
== END 2018-07-08 12:52 | disposition home or self-care (01) ==
LOC: HOP 10:59
PROVIDERS: ATTEND Internal Medicine Gastroenterology
DX: Z12.11 Encounter for screening for malignant neoplasm of colon (principal); Z53.09 Procedure and treatment not carried out because of other contraindication; Z87.19 Personal history of other diseases of the digestive system; K31.4 Gastric diverticulum; K21.9 Gastro-esophageal reflux disease without esophagitis; I48.91 Unspecified atrial fibrillation
CPT/HCPCS: 00813; 43235; G0121

== ENCOUNTER 2018-10-27 09:37 | Emergency (ER) | payer MEDICARE ==
--- NOTE | 2018-10-27 10:31 | Emergency Department Record ---
History of Present Illness - General Chief Complaint: General Stated Complaint: BLEEDING SKIN/WARFARIN Time Seen by Provider: 10/27/18 10:26 Source: Patient Mode of Arrival: Ambulatory - History of Present Illness Initial comments: The patient has been prescribed coumadin for atrial fibrillation by Dr. De La Rosa for which she takes 4 mg 3 days a week and 5 mg the other 4 days a week. She has not had her levels checked for a few months. She states she has been bleeding in her skin and bruising spontaneously and want to know what is going on. She denies hitting her head, headache, nausea, injuries, or abdominal pain. Mostly her arms have skin tears, and she has bruising on the side of her face , and her legs. Her tetanus is UTD. - Related Data Allergies Allergy/AdvReac Type Severity Reaction Status Date / Time Sulfa (Sulfonamide Allergy Severe ANAPHYLAXIS Verified 10/27/18 10:02 Antibiotics) rivaroxaban [From Xarelto] Allergy Intermediate RASH Verified 10/27/18 10:02 codeine AdvReac Intermediate NAUSEA AND Verified 10/27/18 10:02 VOMITING pregabalin [From Lyrica] AdvReac Intermediate BLURRED Verified 10/27/18 10:02 VISION Travel Screening - Travel/Exposure Within Last 30 Days Have you traveled within the last 30 days?: No - Travel/Exposure Within Last Year Have you traveled outside the [place] in the last year?: No - Additonal Travel Details Have you been exposed to anyone with a communicable illness?: No - Travel Symptoms Symptom Screening: None Review of Systems Reviewed: No additional complaints except as noted below Constitutional: Reports: As per HPI. Denies: Chills, Fever, Malaise, Night sweats, Weakness, Weight change Eyes: Reports: As per HPI. Denies: Eye discharge, Eye pain, Photophobia, Vision change ENT: Reports: As per HPI. Denies: Congestion, Dental pain, Ear pain, Epistaxis , Hearing loss, Throat pain Respiratory: Reports: As per HPI. Denies: Cough, Dyspnea, Hemoptysis, Stridor, Wheezes Cardiovascular: Reports: As per HPI. Denies: Arrhythmia, Chest pain, Dyspnea on exertion, Edema, Murmurs, Orthopnea, Palpitations, Paroxysmal nocturnal dyspnea, Rheumatic Fever, Syncope Endocrine: Reports: As per HPI. Denies: Fatigue, Heat or cold intolerance, Polydipsia, Polyuria Gastrointestinal: Reports: As per HPI. Denies: Abdominal pain, Constipation, Diarrhea, Hematemesis, Hematochezia, Melena, Nausea, Vomiting Genitourinary: Reports: As per HPI. Denies: Abnormal menses, Discharge, Dyspareunia, Dysuria, Frequency, Hematuria, Incontinence, Retention, Urgency Musculoskeletal: Reports: As per HPI. Denies: Arthralgia, Back pain, Gout, Joint swelling, Myalgia, Neck pain Skin: Reports: As per HPI. Denies: Bruising, Change in color, Change in hair/ nails, Lesions, Pruritus, Rash Neurological: Reports: As per HPI. Denies: Abnormal gait, Confusion, Headache, Numbness, Paresthesias, Seizure, Tingling, Tremors, Vertigo, Weakness Psychiatric: Reports: As per HPI. Denies: Anxiety, Auditory hallucinations, Depression, Homicidal thoughts, Suicidal thoughts, Visual hallucinations Hematological/Lymphatic: Reports: As per HPI. Denies: Anemia, Blood Clots, Easy bleeding, Easy bruising, Swollen glands Past Medical History - SOCIAL HISTORY Smoking Status: Never smoker Alcohol Use: None Drug Use: None - RESPIRATORY Hx Respiratory Disorders: Yes Hx Asthma: No Hx Bronchitis: Yes (none recently) Hx Pneumonia: Yes (6 yrs ago) Hx Sleep Apnea: No - CARDIOVASCULAR Hx Cardio Disorders: Yes Hx Abnormal EKG: Yes Hx Chest Pain: No Hx CHF: No Hx Deep Vein Thrombosis: Yes (right leg 2002) Hx Heart Attack: No Hx Irregular Heartbeat: Yes (A-fib) Hx Palpitations: No Hx Vascular Disease: Yes (peripheral vascular disease) - NEURO Hx Neuro Disorders: Yes Hx Headaches: Yes Hx of Migraines: Yes Hx Seizures: No Hx TIA: Yes (2010) - GI Hx GI Disorders: Yes Hx Abdominal Pain: Yes (middle upper abdomen) Hx Diverticulitis: No Hx Reflux: Yes (on omeprazole) Hx Irritable Bowel: Yes Hx Liver Disease: No Hx Nausea/Vomiting: No Hx Pancreatitis: No Hx Wt Loss/Wt Gain: (.) - Hx Genitourinary Disorders: No Hx Bladder Problem: No Hx Kidney Stones: No Hx Renal Disease: No Comment:: hysterectomy - ENDOCRINE Hx Endocrine Disorders: Yes Hx Thyroid Disease: Yes (hypo active) - MUSCULOSKELETAL Hx Musculoskeletal Disorders: Yes Hx Arthritis: Yes (all over) Hx Fibromyalgia: Yes Hx Osteoporosis: Yes - PSYCH Hx Psych Problems: Yes Hx Anxiety: Yes Hx Depression: Yes - HEMATOLOGY/ONCOLOGY Hx Hematology/Oncology Disorders: Yes Hx Anemia: Yes Hx Bruising: Yes (on warfarin) Hx Cancer: No Hx Blood Transfusions: Yes Hx Blood Transfusion Reaction: No Comment:: has yearly iron infusions-done August 2016 Family Medical History Any Significant Family History?: Yes Hx Alcohol Use: Father, Brother/Sister Hx Anxiety: Mother Hx Cancer: Grandparents Hx Dementia: Mother Hx Depression: Mother Hx Diabetes: Mother Hx Heart Disease: Father Hx HTN: Father Hx Resp Disorders: Mother Hx Stroke: Mother Physical Exam - General General Appearance: Alert, Oriented x3, Cooperative, No acute distress - Head Head exam: Normal inspection Head exam detail: Other (bruising on left side of cheek) - Eye Eye exam: Normal appearance, PERRL, EOMI. negative: Conjunctival injection, Nystagmus Pupils: Normal accommodation - ENT ENT exam: Normal exam, Mucous membranes moist, Normal external ear exam, Normal orophraynx, TM's normal bilaterally Ear exam: Normal external inspection. negative: External canal tenderness Nasal Exam: Normal inspection. negative: Discharge, Sinus tenderness Mouth exam: Normal external inspection, Tongue normal Teeth exam: Normal inspection. negative: Dental caries Throat exam: Normal inspection. negative: Tonsillar erythema, Tonsillar exudate - Neck Neck exam: Normal inspection, Full ROM. negative: Lymphadenopathy, Meningismus , Tenderness - Respiratory Respiratory exam: Normal lung sounds bilaterally. negative: Respiratory distress - Cardiovascular Cardiovascular Exam: Regular rate, Normal rhythm, Normal heart sounds - GI/Abdominal GI/Abdominal exam: Soft, Normal bowel sounds. negative: Tenderness - Rectal Rectal exam: Deferred - exam: Deferred - Extremities Extremities exam: Normal inspection, Full ROM, Normal capillary refill, Other ( a few contusions, no calf tenderness or edema to lower extremities; very thins skn with skin tears to upper extremities.). negative: Tenderness - Back Back exam: Reports: Normal inspection, Full ROM. Denies: Muscle spasm, Rash noted, Tenderness - Neurological Neurological exam: Alert, Normal gait, Oriented X3, Reflexes normal - Psychiatric Psychiatric exam: Normal affect, Normal mood - Skin Skin exam: Dry, Intact, Normal color, Warm Course Vital Signs 10/27/18 10:06 Pulse Rate 77 Respiratory 20 Rate Blood Pressure 114/76 Pulse Ox 95 - Reevaluation(s) Reevaluation #1: 10/27/18 11:24 PT= 41.1 and INR= 4.6 Reevaluation #2: Discuissed result with patient and told her to hold her coumadin and make PCP appointment for following this in the office. Wounds dressed. 10/27/18 11:29 Medical Decision Making - Management Options MDM Management: No Additional Work-up Planned - Data Complexity MDM Data: Labs Ordered and/or Reviewed (INR 4.6; PT 44.1; ) Disposition Disposition: Discharge Clinical Impression: Anticoagulation excessive Skin tear of forearm without complication Qualifiers: Encounter type: initial encounter Laterality: unspecified laterality Qualified Code(s): S51.819A - Laceration without foreign body of unspecified forearm, initial encounter Disposition: Home, Self-Care Condition: (1) Good Instructions: Warfarin (By mouth) Additional Instructions: Do not take your coumadin. Call your PCP today for follow up instructions. Quality - Quality Measures Quality Measures: N/A - Blood Pressure Screening Does Patient Have Any of the Following: No Blood Pressure Classification: Normal BP Reading Systolic Measurement: 114 Diastolic Measurement: 76 Screening for High Blood Pressure: < Normal BP, F/U Not Required > [G8783]
[2018-10-27 11:14] LABS: INR 4.6; PARTIAL THROMBOPLASTIN TIME 56.9 SECONDS (24.5-39.1); PROTHROMBIN TIME (PATIENT) 44.1 SECONDS (9.5-12.1)
== END 2018-10-27 12:04 | disposition home or self-care (01) ==
LOC: ER 09:37
DX: T45.515A Adverse effect of anticoagulants, initial encounter (principal); S51.819A Laceration without foreign body of unspecified forearm, initial encounter; S00.83XA Contusion of other part of head, initial encounter; S80.12XA Contusion of left lower leg, initial encounter; S80.11XA Contusion of right lower leg, initial encounter; I48.91 Unspecified atrial fibrillation; Z79.01 Long term (current) use of anticoagulants
CPT/HCPCS: 85610; 85730; 99283